=== PATIENT | female | born 1965 | race Caucasian/White ===

== ENCOUNTER → 2020-05-02 13:37 | Outpatient (CLI) | payer OTHER, SELFPAY ==
[2020-05-02] MEDS: COVID-19 VACC #1, MRNA(MOD) 100 MCG/0.5 ML VIAL IM (13:46)
== END ==
PROVIDERS: Visit Provider Internal Medicine
DX: Z23 Encounter for immunization (principal)
CPT/HCPCS: 0011A; 91301

== ENCOUNTER → 2020-05-30 13:37 | Outpatient (CLI) | payer OTHER, SELFPAY ==
[2020-05-30] MEDS: COVID-19 VACC #2, MRNA(MOD) 100 MCG/0.5 ML VIAL IM (13:49)
== END ==
PROVIDERS: Visit Provider Internal Medicine
DX: Z23 Encounter for immunization (principal)
CPT/HCPCS: 0012A; 91301

== ENCOUNTER 2023-09-09 15:15 | Outpatient (RCR) | payer OTHER, SELFPAY ==
--- NOTE | 2023-08-04 10:54 | ST.OPIE ---
Visit Care Team Role Provider Type Chidi Madera MD Attending Provider Non-Staff Family Provider Primary Care Provider Referring Provider Specialty: Medical Address: [address] [place] [address], [place], [address] Email: Speech-Language Pathology Initial Evaluation INSTRUCTIONAL DESIGN MANAGER Adult Cognitive Linguistic Eval Start: 08/04/23 10:31 Freq: Status: Active Protocol: Document 08/04/23 10:31 PAMELLA (Rec: 08/04/23 10:53 MA [id number]) Adult Cognitive Linguistic Evaluation Session Time Visit Start Time 09:45 Visit Stop Time 10:30 Total Visit Minutes 45 Visit Information Visit Number Initial Eval Plan of Care Dates 08/04/23-11/04/23 Insurance Information [place] Referral Referring Provider Dr. Madera Reason for Referral Unspecified mental disorder due to known physiological condition Setting Assessment Location Outpatient Care Visit Type Note Type Initial evaluation Next Note Type Next Note Type Treatment Note Patient Information Identification Type Name Patient History Pt is a 57 year old female seen this date for 1:1 cognitive communication evaluation. She is accompanied by her brother who assited with providing case history d/ t Pt with some memory deficits in regards to timeline of events. 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 She was transferred from [facility] in [place] to [facility] in [place] via helicopter and was in the ICU for 3 weeks. She was then discharged to inpatient rehab at [facility] from 04/29-05/31. She currently lives with her brother and had in home therapy 2x/week up until last week. She received PT/OT/ST both inpatient and in home. She reports residual cognitive dysfunction and word finding difficulties post hemorrhage, however has improved a great deal from when it first occurred. 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 [facility] She is currently receiving outpatient PT/ST/OT. Subjective Patient Report Pt reports she does not recall the days leading up to the hemorrhage, or even months prior to the accident. She states she had made improvements cognitively, however continues to have residual memory recall difficulties, trouble subtracting numbers, word finding issues and impulsivity , specifically rushing into things and then making mistakes. Pt reports she worked with a lot of numbers at work and has no plan to return at this time. Mental Status Alert,Responsive,Cooperative Assessment Oral Motor Examination Completed No Informal Assessment Pragmatic Language Normal Yes Cognition Normal Yes Cognitive Impairment(s) Short-term memory,Long-term memory Formal Assessment Standardized Test/Screener Type Cognitive Linguistic Quick Test (CLQT) Administration Initiated,Incomplete Results ST administered the Cognitive Linguistic Quick Test (CLQT), however not completed d/t time . ST plan to complete exam during next session. Pt completed personal facts with a score of 8/8 and symbool cancellation with a score of 12/12. Findings/Results Language Function Mildly impaired Cognitive Function Mild-moderately impaired Findings Pt presents with mild-mod cognitive-linguistic deficit. Pt may benefit from skilled ST services in order to learn and utilize memory enhancing and problem solving compensatory strategies, environmental modifications to assist with memory and executive functions as well as word finding. Cognitive Communication Deficits Self-awareness of Cognitive- Predictive awareness (able to Communication Deficits predict problem; impact of impairments) Prognosis Prognosis Good Based on Cognitive status,Family support,Duration of symptoms/ severity Plan of Care Speech-Language Treatment Yes Frequency 1x/week up to 15 visits Duration 3 months Patient/Caregiver Education Described results of evaluation,Patient expressed understanding of evaluation, Patient expressed agreement with goals and treatment plans ,Family/caregivers expressed understanding of evaluation, Family/caregivers expressed agreement with goals and treatment plan,Patient requires further education/ training,Family/caregivers require further education/ training Short Term Goals STG 1: Patient will name/ describe objects/pictures with 80% accuracy and mod cues for forced choice, phonemic/ semantic cueing, gestural/ contextual cues. STG 2: Patient will demonstrate increase short term recall for functional/ daily life information with 90 % of opportunities given environmental modifications implemented and by using visual aids in order to increase independence. Electrical Cad Designer Goals LTG 2: Patient will develop functional, cognitive- linguistic-based skills and utilize compensatory strategies to communicate wants and needs effectively to different conversational partners, maintain safety and participate socially in functional living environment Discharge Recommendations Home
--- NOTE | 2023-08-04 10:54 | ST.OPPOC ---
Physical, Occupational & Speech Therapy At [facility] Visit Care Team Role Provider Type Chidi Madera MD Attending Provider Non-Staff Family Provider Primary Care Provider Referring Provider Address: [address] [place] [address], [id number] Speech Pathology Plan of Care Plan of Care Dates 08/04/23-11/04/[address] Madera Patient History Pt is a 57 year old female seen this date for 1: 1 cognitive communication evaluation. She is accompanied by her brother who assited with providing case history d/t Pt with some memory deficits in regards to timeline of events. 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 She was transferred from [facility] in [place] to [facility] in [place] via helicopter and was in the ICU for 3 weeks. She was then discharged to inpatient rehab at [facility] from 04/29-05/31. She currently lives with her brother and had in home therapy 2x/week up until last week. She received PT/OT/ ST both inpatient and in home. She reports residual cognitive dysfunction and word finding difficulties post hemorrhage, however has improved a great deal from when it first occurred. Self-awareness of Cognitive- Predictive awareness (abl Communication Deficits Short Term Goals STG 1: Patient will name/describe objects/ pictures with 80% accuracy and mod cues for forced choice, phonemic/semantic cueing, gestural/contextual cues. STG 2: Patient will demonstrate increase short term recall for functional/daily life information with 90% of opportunities given environmental modifications implemented and by using visual aids in order to increase independence. Face Burler Goals LTG 2: Patient will develop functional, wmrpmjqum-[id number]-[id number] skills and utilize compensatory strategies to communicate wants and needs effectively to different conversational partners, maintain safety and participate socially in functional living environment Comment: Electronically Signed by: BILL Mathtews 08/04/23 [id number] If you are in agreement with this Plan of Care, please return a signed and dated copy. I have reviewed this Plan of Care and certify that the skilled therapy services above are required to meet the patient?s needs. Physician Signature Date Printed Name and Credentials Clinical Instructor Signature Printed Name and Credentials
--- NOTE | 2023-08-08 17:31 | ST.OPTN ---
Visit Care Team Role Provider Type Chidi Madera MD Attending Provider Non-Staff Family Provider Primary Care Provider Referring Provider Address: [address] [place] [address], [place], [address] DISK RECORDIST Treatment Note DISK RECORDIST Treatment Note Start: 08/08/23 17:16 Freq: Status: Active Protocol: Document 08/08/23 17:19 MA (Rec: 08/08/23 17:30 MA [id number]) Speech Pathology Treatment Note Session Time Visit Start Time 16:00 Visit Stop Time 16:35 Total Visit Minutes 35 Visit Information Visit Number 2 Plan of Care Dates 08/04/23-11/04/23 Setting Treatment Setting Outpatient Care Next Note Type Next Note Type Treatment Note General Information Patient History Pt is a 57 year old female seen this date for 1:1 cognitive communication evaluation. She is accompanied by her brother who assited with providing case history d/ t Pt with some memory deficits in regards to timeline of events. 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 She was transferred from [facility] in [place] to [facility] in [place] via helicopter and was in the ICU for 3 weeks. She was then discharged to inpatient rehab at [facility] from 04/29-05/31. She currently lives with her brother and had in home therapy 2x/week up until last week. She received PT/OT/ST both inpatient and in home. She reports residual cognitive dysfunction and word finding difficulties post hemorrhage, however has improved a great deal from when it first occurred. Subjective Observations/Patient Presentation Pt arrived on time to therapy independently. She reports she took the public transit without any issues. Objective Short Term Goals STG 1: Patient will name/ describe objects/pictures with 80% accuracy and mod cues for forced choice, phonemic/ semantic cueing, gestural/ contextual cues. STG 2: Patient will demonstrate increase short term recall for functional/ daily life information with 90 % of opportunities given environmental modifications implemented and by using visual aids in order to increase independence. Certified Nurse Aide Goals LTG 2: Patient will develop functional, cognitive- linguistic-based skills and utilize compensatory strategies to communicate wants and needs effectively to different conversational partners, maintain safety and participate socially in functional living environment Treatment Activities Completion of CLQT Assessment Patient Response to Treatment Excellent Rehab Potential Excellent Impairments Identified Cognitive communication Progress Towards Goals Excellent Progress Assessment of Improvement ST completed administering CLQT with Pt scoring a total score of 4 indicating a composite severity rating of WNL. Pt scored the WNL on each section: attention, memory, executive functions, language, visuospatial skills and clock drawing. Pt exhibited most deficits in language and memory recall. Pt reports in her daily life she continues to struggle with subtraction and memory recall. She also states if she initiate a task too quickly she won't execute the task as efficiently if she took more time to do. ST educated Pt on test results and POC. Pt verbalized understanding.
--- NOTE | 2023-08-15 16:38 | ST.OPTN ---
Visit Care Team Role Provider Type Chidi Madera MD Attending Provider Non-Staff Family Provider Primary Care Provider Referring Provider Address: [address] [place] [address], [place], [address] JEWEL HOLE CORNERER Treatment Note JEWEL HOLE CORNERER Treatment Note Start: 08/08/23 17:16 Freq: Status: Active Protocol: Document 08/15/23 16:26 MA (Rec: 08/15/23 16:38 MA [id number]) Speech Pathology Treatment Note Session Time Visit Start Time 16:00 Visit Stop Time 16:35 Total Visit Minutes 35 Visit Information Visit Number 3 Plan of Care Dates 08/04/23-11/04/23 Setting Treatment Setting Outpatient Care Next Note Type Next Note Type Treatment Note General Information Patient History Pt is a 57 year old female seen this date for 1:1 cognitive communication evaluation. She is accompanied by her brother who assited with providing case history d/ t Pt with some memory deficits in regards to timeline of events. 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 She was transferred from [facility] in [place] to [facility] in [place] via helicopter and was in the ICU for 3 weeks. She was then discharged to inpatient rehab at [facility] from 04/29-05/31. She currently lives with her brother and had in home therapy 2x/week up until last week. She received PT/OT/ST both inpatient and in home. She reports residual cognitive dysfunction and word finding difficulties post hemorrhage, however has improved a great deal from when it first occurred. Subjective Observations/Patient Presentation Pt arrived on time to therapy independently. She reports she took the public transit without any issues. She also reports she has moved back into her home and living independently. Objective Short Term Goals STG 1: Patient will name/ describe objects/pictures with 80% accuracy and mod cues for forced choice, phonemic/ semantic cueing, gestural/ contextual cues. STG 2: Patient will demonstrate increase short term recall for functional/ daily life information with 90 % of opportunities given environmental modifications implemented and by using visual aids in order to increase independence. Mcfp Goals LTG 2: Patient will develop functional, cognitive- linguistic-based skills and utilize compensatory strategies to communicate wants and needs effectively to different conversational partners, maintain safety and participate socially in functional living environment Treatment Activities Education on internal and external memory strategies, math exercise Assessment Patient Response to Treatment Excellent Rehab Potential Excellent Impairments Identified Cognitive communication Progress Towards Goals Excellent Progress Assessment of Improvement ST educated Pt on internal and external memory strategies. She reports she is now living home independently and utilizes a calendar and timer. She states she especially utilizes a timer when cooking. She reports she would like to improve her ability to complete tasks without so much hesitation. ST provided Pt with a notebook and recommended she write down any time she has experienced a cognitive issue. ST assessed Pt ability to subtract d/t her reporting difficulties. She completed subtraction with 100 % accuracy and states she can do it on paper however has mosot difficulties doing it in her head. She would like to focus therapy on figuring out ways to complete tasks quicker and without so much delay.
--- NOTE | 2023-08-22 16:06 | ST.OPTN ---
Visit Care Team Role Provider Type Chidi Madera MD Attending Provider Non-Staff Family Provider Primary Care Provider Referring Provider Address: [address] [place] [address], [place], [address] SHOP STEWARD Treatment Note SHOP STEWARD Treatment Note Start: 08/08/23 17:16 Freq: Status: Active Protocol: Document 08/22/23 15:57 PAMELLA (Rec: 08/22/23 16:06 PAMELLA [id number]) Speech Pathology Treatment Note Session Time Visit Start Time 14:35 Visit Stop Time 15:15 Total Visit Minutes 40 Visit Information Visit Number 4 Plan of Care Dates 08/04/23-11/04/23 Setting Treatment Setting Outpatient Care Next Note Type Next Note Type Treatment Note General Information Patient History Pt is a 57 year old female seen this date for 1:1 cognitive communication evaluation. She is accompanied by her brother who assited with providing case history d/ t Pt with some memory deficits in regards to timeline of events. 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 She was transferred from [facility] in [place] to [facility] in [place] via helicopter and was in the ICU for 3 weeks. She was then discharged to inpatient rehab at [facility] from 04/29-05/31. She currently lives with her brother and had in home therapy 2x/week up until last week. She received PT/OT/ST both inpatient and in home. She reports residual cognitive dysfunction and word finding difficulties post hemorrhage, however has improved a great deal from when it first occurred. Subjective Observations/Patient Presentation Pt arrived on time to therapy independently. She reports she took the public transit without any issues. Objective Short Term Goals STG 1: Patient will name/ describe objects/pictures with 80% accuracy and mod cues for forced choice, phonemic/ semantic cueing, gestural/ contextual cues. STG 2: Patient will demonstrate increase short term recall for functional/ daily life information with 90 % of opportunities given environmental modifications implemented and by using visual aids in order to increase independence. Data Processing Auditor Goals LTG 2: Patient will develop functional, cognitive- linguistic-based skills and utilize compensatory strategies to communicate wants and needs effectively to different conversational partners, maintain safety and participate socially in functional living environment Treatment Activities Visual scanning, external memory strategies Assessment Patient Response to Treatment Excellent Rehab Potential Excellent Impairments Identified Cognitive communication Progress Towards Goals Excellent Progress Assessment of Improvement Pt reports she wrote down a list of moments she experienced cognitive deficits /delays, however forgot it at home but coulg recall the list . They included: going to turn on the radio and pushing the off button, putting the spatula away in the wrong drawer, and forgetting name of the dietary server that rescheduled her appointment. ST recommended Pt put labels on kitchen cabinets/radio at home to assist with recall/ problem solving. Pt verbalized understanding. Pt also reported difficulties with right visual field cut. ST assessed visuospatial skills utilizing a scanning task, which Pt completed with 100% accuracy. ST provided an educational handout on visual scanning strategies to assist Pt with reading and other everyday tasks. She states she has no desire to start driving again until her vision improves. She states she has been utilizing timers at home for tasks to not forget, such as cooking. ST recommended Pt write down tasks that she has been struggling to initiate or where the steps becoming confusing in order to potentially make a checklist together. Pt verbalized understanding.
--- NOTE | 2023-08-30 17:15 | ST.OPTN ---
Visit Care Team Role Provider Type Chidi Madera MD Attending Provider Non-Staff Family Provider Primary Care Provider Referring Provider Address: [address] [place] [address], [place], [address] BASKET SORTER Treatment Note BASKET SORTER Treatment Note Start: 08/08/23 17:16 Freq: Status: Active Protocol: Document 08/30/23 17:09 PAMELLA (Rec: 08/30/23 17:14 PAMELLA [id number]) Speech Pathology Treatment Note Session Time Visit Start Time 16:45 Visit Stop Time 17:15 Total Visit Minutes 30 Visit Information Visit Number 5 Plan of Care Dates 08/04/23-11/04/23 Setting Treatment Setting Outpatient Care Next Note Type Next Note Type Treatment Note General Information Patient History Pt is a 57 year old female seen this date for 1:1 cognitive communication evaluation. She is accompanied by her brother who assited with providing case history d/ t Pt with some memory deficits in regards to timeline of events. 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 She was transferred from [facility] in [place] to [facility] in [place] via helicopter and was in the ICU for 3 weeks. She was then discharged to inpatient rehab at [facility] from 04/29-05/31. She currently lives with her brother and had in home therapy 2x/week up until last week. She received PT/OT/ST both inpatient and in home. She reports residual cognitive dysfunction and word finding difficulties post hemorrhage, however has improved a great deal from when it first occurred. Subjective Observations/Patient Presentation Pt arrived on time to therapy independently. She reports she took the public transit without any issues. Objective Short Term Goals STG 1: Patient will name/ describe objects/pictures with 80% accuracy and mod cues for forced choice, phonemic/ semantic cueing, gestural/ contextual cues. STG 2: Patient will demonstrate increase short term recall for functional/ daily life information with 90 % of opportunities given environmental modifications implemented and by using visual aids in order to increase independence. Software Support Specialist Goals LTG 2: Patient will develop functional, cognitive- linguistic-based skills and utilize compensatory strategies to communicate wants and needs effectively to different conversational partners, maintain safety and participate socially in functional living environment Treatment Activities Internal memory strategies Assessment Patient Response to Treatment Excellent Rehab Potential Excellent Impairments Identified Cognitive communication Progress Towards Goals Excellent Progress Assessment of Improvement Pt reports she wrote down a list of moments she experienced cognitive deficits /delays, however forgot it at home but could recall 1 thing on the list. She reported difficulties working her timer when hard boiling eggs and set it to seconds vs minutes, however still cooked the eggs for an appropriate amount of time. She states she has been working with PT on her visual neglect. She returned homework which involved reviewing and practicing utilizing internal memory strategies. ST assessed use of internal memory strategy word association in order to promote carryover. She recalled 5 unrelated words with about a 3 minute delay with use of word association strategy with about 93% accuracy requiring mild verbal cues. ST educated Pt on POC. Pt verbalized understanding. Reviewed with Patient Goals,Progress Being Made
--- NOTE | 2023-09-09 15:45 | ST.OPDS ---
Visit Care Team Role Provider Type Chidi Madera MD Attending Provider Non-Staff Family Provider Primary Care Provider Referring Provider Address: [address] [place] [address], [place], [address] PLATE HANGER Treatment Note PLATE HANGER Treatment Note Start: 08/08/23 17:16 Freq: Status: Active Protocol: Document 09/09/23 15:31 MA (Rec: 09/09/23 15:35 MA [id number]) Speech Pathology Treatment Note Session Time Visit Start Time 15:15 Visit Stop Time 15:45 Total Visit Minutes 30 Visit Information Visit Number 6 Plan of Care Dates 08/04/23-11/04/23 Setting Treatment Setting Outpatient Care Next Note Type Next Note Type Treatment Note General Information Patient History Pt is a 57 year old female seen this date for 1:1 cognitive communication evaluation. She is accompanied by her brother who assited with providing case history d/ t Pt with some memory deficits in regards to timeline of events. 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 She was transferred from [facility] in [place] to [facility] in [place] via helicopter and was in the ICU for 3 weeks. She was then discharged to inpatient rehab at [facility] from 04/29-05/31. She currently lives with her brother and had in home therapy 2x/week up until last week. She received PT/OT/ST both inpatient and in home. She reports residual cognitive dysfunction and word finding difficulties post hemorrhage, however has improved a great deal from when it first occurred. Subjective Observations/Patient Presentation Pt arrived on time to therapy independently. She reports she took the public transit without any issues. She just had PT prior to session. Objective Short Term Goals STG 1: Patient will name/ describe objects/pictures with 80% accuracy and mod cues for forced choice, phonemic/ semantic cueing, gestural/ contextual cues.- MET STG 2: Patient will demonstrate increase short term recall for functional/ daily life information with 90 % of opportunities given environmental modifications implemented and by using visual aids in order to increase independence.- MET Breaker Mechanic Goals LTG 1: Patient will develop functional, cognitive- linguistic-based skills and utilize compensatory strategies to communicate wants and needs effectively to different conversational partners, maintain safety and participate socially in functional living environment Treatment Activities Discharge recommendations- MET Assessment Patient Response to Treatment Excellent Rehab Potential Excellent Impairments Identified Cognitive communication Progress Towards Goals Excellent Progress,Appropriate for Discharge Assessment of Improvement Pt reports 1x occurrence of cognitive deficit since last visit, specifically putting the milk away in the wrong place. However, Pt reports unable to determine if d/t CVA or if just having a normal hiccup. She reports she has been utilizing internal and external memory strategies without diifficulties. ST facilitated conversation in regards to Pt discharging from therapy d/t reaching goals and utilizing strategies independently. Pt in agreeance . Pt continues to be seen at this clinic for PT with ST recommending she communicate with her if any changes occur cognitively. Pt verbalized understanding. ST also recommends Pt continue to utilize memory compensatory strategies. Reviewed with Patient Goals,Progress Being Made Plan Frequency of Treatment No Further Therapy Provided Patient/Caregiver Instruction Home Exercise Program,Plan of Care,Questions/Concerns Therapy Recommendations Discharge from Speech Therapy
== END 2023-09-13 10:56 | disposition home or self-care (01) ==
LOC: SP 15:15
PROVIDERS: Family Provider Family Medicine; PCP Family Medicine; Referring Provider Family Medicine; Visit Provider Family Medicine
DX: F09 Unspecified mental disorder due to known physiological condition (principal)
CPT/HCPCS: 92507; 92523

== ENCOUNTER 2023-09-12 13:45 | Outpatient (RCR) | payer OTHER, SELFPAY ==
--- NOTE | 2023-08-01 09:49 | OT.OP.EVAL ---
Visit Care Team Role Provider Type Chidi Madera MD Attending Provider Non-Staff Family Provider Primary Care Provider Referring Provider Specialty: Medical Address: [address] [place] [address], [place], [address] Email: Occupational Therapy Initial Evaluation OT Outpatient Adult Evaluation Start: 08/01/23 08:58 Freq: Status: Active Protocol: Document 08/01/23 08:58 AMS (Rec: 08/01/23 09:42 AMS [id number]) General Information - Adult Visit Number 02/28 Plan of Care Dates 08/01/23 - 09/12/23 Insurance Information [facility]; x 15 auth OT; max 60 PT/OT/SP PCY Visit Start Time 08:15 Visit Stop Time 08:50 Treatment Setting Outpatient Care Note Type Initial Evaluation Referring Physician Chidi Madera MD Identification Confirmed Yes Identification Confirmed By Self Previous Therapy/Therapies Yes History of Therapy Inpatient; Home Health Goals Data Reduction Technician Goals 1. Kimberly will be modified independent with upper extremity home exercise program referencing written/ visual instructions as needed. 2. Kimberly will demonstrate improvements w/ L UE strength: 2a. 4+/5 MMT L sh abduction. Assessment/Plan Treatment Assessment Kimberly is 57 y.o.; right hand dominant; referred to outpatient OT secondary to stroke (which occurred on April 01). She was in the ICU at [facility] x 3 weeks; then transferred to [facility] in [place] for 5 weeks; then she was d/c to her brother's home ([place]). She received inpatient therapies, as well as services. She was instructed in TB bicep curls, tricep extension, and seated rows, hamstring curls, side kicks. She was orientated to day, date, and year. PMH significant for back pain, blood pressure concerns, headaches, hearing problems, memory loss, neck pain, vision problems, chronic sciatica. Whole Body Pain Assessment Grid completed; indication of 5 out of 10 on on pain scale relative to lateral bilateral scapular/inferior shoulders; indication of 7 out of 10 on pain scale relative left lower lumbar region. QuickDASH UE Outcome Measure Score = 40.91; QuickDASH UE Work Module Score = 50.00. PLOF = independent w/ BADLS and IADLS. 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 Current level of function = Kimberly is residing w/ her brother eBnji , Benji's , and mother-in- law. She is not working. She is not driving; she just recently started using paratransit (started last Tuesday). She obtained new glasses since stroke (last Tuesday from wind turbine technician). She is independent with dressing, g/h, self-feeding, bathing and toileting. She has done some meal prep (prepared x 3 meals), some weeding in the garden, laundry and light house keeping tasks. She has a work station set-up in the home; she has access to a calendar, completes a daily diary, does word searches/ sudoku puzzles. Written signage is within the home to help w/ orientation/short term memory. She has been able to correct self when mistakes are made. Screened visual scanning abilities; correctly identified 35/36 single items w/ visual scanning activity single targets x 2; correctly identified 40/40 2 digit items w/ visual scanning activity double digit targets x 2. (+) orientation to midline w/ UEs in frontal plane; above head. Able to oppose digits to each finger pad bilaterally w/ EO and EC. B UE AROM WFL. Overall, good UE strength 4+/5 MMT sh flex, ext, add, hor sh abd, hor sh add, IR, ER, elbow flex, elbow ext; however, 3+/5 MMT L sh abd. Outpatient OT rec to address L UE weakness. Length of treatment (weeks) 6 Plan of Care Start Date 08/01/23 Plan of Care End Date 09/12/23 Treatment Frequency Once a Week Therapeutic Contents Active Range of Motion, Functional Activities,Home Exercise Program,Joint Protection,Education, Neurodevelopment Treatment, Neuromuscular Re-Education, Self-Care,Stretching/ Flexibility Activities, Therapeutic Activities, Therapeutic Exercises, Modalities Additional Areas of Treatment Heat/Ice/Contrast/Ultrasound Other Suggested Referrals GARBAGE PICK UP WORKER and PT
--- NOTE | 2023-08-08 15:45 | OT.OP.TRT ---
Visit Care Team Role Provider Type Chidi Madera MD Attending Provider Non-Staff Family Provider Primary Care Provider Referring Provider Specialty: Medical Address: [address] [place] [address], [place], [address] Email: Occupational Therapy Treatment Note OT Outpatient Treatment Note - Adult Start: 08/01/23 08:58 Freq: Status: Active Protocol: Document 08/08/23 15:36 AMS (Rec: 08/08/23 15:45 AMS [id number]) OT Outpatient Adult Treatment Note Session Time Visit Start Time 14:30 Visit Stop Time 15:15 Visit Information Visit Number 03/31 Plan of Care Dates 08/01/23 - 09/12/23 Insurance Information [facility]; x 15 auth OT; max 60 PT/OT/SP PCY Setting Treatment Setting Outpatient Care Visit Type Note Type Treatment Note General Information General Information Kimberly is 57 y.o.; right hand dominant; referred to outpatient OT secondary to stroke (which occurred on April 01). She was in the ICU at [facility] x 3 weeks; then transferred to [facility] in [place] for 5 weeks; then she was d/c to her brother's home ([place]). She received inpatient therapies, as well as HH services. She was instructed in TB bicep curls, tricep extension, and seated rows, hamstring curls, side kicks. She was orientated to day, date, and year. PMH significant for back pain, blood pressure concerns, headaches, hearing problems, memory loss, neck pain, vision problems, chronic sciatica. - Subjective Identification Type Name Identification Reconciled With Medical Record Observations Kimberly reports that she is anxious to return to her condo ; she has a friend who is assisting her with replacing the 'cracked' skylight. She is still staying with her brother at this time. She has an appointment w/ Tien at 4: 00 p.m.; she is using paratransit to commute to and from appointments. She reported walking a little less than 1/4 miles in approx 27 min. - Objective Objective Measurements Please refer to below for progress towards meeting established OT goals: Detention Goals 1. Kimberly will be modified independent with upper extremity home exercise program referencing written/ visual instructions as needed. 2. Kimberly will demonstrate improvements w/ L UE strength: 2a. 4+/5 MMT L sh abduction. - Exercises 2 Descriptor UE strengthening. TB #3. Bilateral Seated row. 3 x 10. TB #3. Bilateral Sh ext. Standing. 3 x 10. TB #3. Unilateral elbow ext. Seated. 3 x 10. TB #3. Unilateral sh flex. Seated. 3 x 10. TB #3. Unilateral sh abd. Seated. 3 x 10. 1 Descriptor UEB. x 10 minutes seated. Height #3. x 7 min forwards direction. x 3 min backwards direction. - Assessment Assessment of Improvement Kimberly did quite well w/ TB UE strengthening exercises; she had been previously instructed in B bicep curls, tricep extension, and seated rows w/ theraband by HH. Rec trialing longer theraband for identification of preference for bilateral vs unilateral execution of UE strengthening. Outpatient OT rec to address L UE weakness. - Plan Therapy Recommendations Continue with Current Program, Advance per Rehabilitation Protocol
--- NOTE | 2023-08-15 15:35 | OT.OP.TRT ---
Visit Care Team Role Provider Type Chidi Madera MD Attending Provider Non-Staff Family Provider Primary Care Provider Referring Provider Specialty: Medical Address: [address] [place] [address], [place], [address] Email: Occupational Therapy Treatment Note OT Outpatient Treatment Note - Adult Start: 08/01/23 08:58 Freq: Status: Active Protocol: Document 08/15/23 15:27 AMS (Rec: 08/15/23 15:35 AMS [id number]) OT Outpatient Adult Treatment Note Session Time Visit Start Time 14:30 Visit Stop Time 15:10 Visit Information Visit Number 04/28 Plan of Care Dates 08/01/23 - 09/12/23 Insurance Information [facility]; x 15 auth OT; max 60 PT/OT/SP PCY Setting Treatment Setting Outpatient Care Visit Type Note Type Treatment Note General Information General Information Kimberly is 57 y.o.; right hand dominant; referred to outpatient OT secondary to stroke (which occurred on April 01). She was in the ICU at [facility] x 3 weeks; then transferred to [facility] in [place] for 5 weeks; then she was d/c to her brother's home ([place]). She received inpatient therapies, as well as HH services. She was instructed in TB bicep curls, tricep extension, and seated rows, hamstring curls, side kicks. She was orientated to day, date, and year. PMH significant for back pain, blood pressure concerns, headaches, hearing problems, memory loss, neck pain, vision problems, chronic sciatica. - Subjective Identification Type Name Identification Reconciled With Medical Record Observations Kimberly will be evaluated by Lonnie this 08/17/23 based on availability for PT. She has returned to her condo; she is using timers throughout the home to assist w/ time management/meal preparation. She reports that she has some difficulty locating items within her kitchen. She is scheduling her own paratransit. She is being seen by outpatient MANUGRAPHER. - Objective Objective Measurements Please refer to below for progress towards meeting established OT goals: Perinatal Social Worker Goals 1. Kimberly will be modified independent with upper extremity home exercise program referencing written/ visual instructions as needed. 2. Kimberly will demonstrate improvements w/ L UE strength: 2a. 4+/5 MMT L sh abduction. - Exercises 2 Descriptor UE strengthening. TB #3. Bilateral sh flex. Seated. 3 x 10. TB #3. Unilateral sh abd. Seated. 3 x 10. TB #3. Bilateral lat pulldown. Seated. 3 x 10. TB #3. Bilateral sh hor abd. Seated. 3 x 10. TB #3. Unilateral alt seated punches. Seated. 3 x 10. N/A 08/15/23 TB #3. Bilateral Seated row. 3 x 10. TB #3. Bilateral Sh ext. Standing. 3 x 10. TB #3. Unilateral elbow ext. Seated. 3 x 10. 1 Descriptor UEB. x 10 minutes. Seated. Forwards direction. Height #3. - Assessment Assessment of Improvement Kimberly did quite well w/ TB UE strengthening exercises; introduced lat pulldown and seated alt punches. Rec increasing to 3 sets of 12 reps based on feedback; consider increasing to 3 sets of 15 reps. Outpatient OT rec to address L UE weakness. Home Exercise Program 08/15/23 = Provided w/ TB #3 for home use for UE strengthening ; Kimberly is looking to increase reps; rec 3 sets x 12 . Rec unilateral/bilateral sh flex, sh abd, lat pulldown, hor sh abd; also instructed in seated punches. She is utilizing home blue TB for bicep curls, tricep ext, and rows. - Plan Therapy Recommendations Continue with Current Program, Advance per Rehabilitation Protocol
--- NOTE | 2023-08-24 15:36 | OT.OP.TRT ---
Visit Care Team Role Provider Type Chidi Madera MD Attending Provider Non-Staff Family Provider Primary Care Provider Referring Provider Specialty: Medical Address: [address] [place] [address], [place], [address] Email: Occupational Therapy Treatment Note OT Outpatient Treatment Note - Adult Start: 08/01/23 08:58 Freq: Status: Active Protocol: Document 08/24/23 15:16 AMS (Rec: 08/24/23 15:36 AMS [id number]) OT Outpatient Adult Treatment Note Session Time Visit Start Time 14:30 Visit Stop Time 15:13 Visit Information Visit Number 05/29 Plan of Care Dates 08/01/23 - 09/12/23 Insurance Information [facility]; x 15 auth OT; max 60 PT/OT/SP PCY Setting Treatment Setting Outpatient Care Visit Type Note Type Treatment Note General Information General Information Kimberly is 57 y.o.; right hand dominant; referred to outpatient OT secondary to stroke (which occurred on April 01). She was in the ICU at [facility] x 3 weeks; then transferred to [facility] in [place] for 5 weeks; then she was d/c to her brother's home ([place]). She received inpatient therapies, as well as HH services. She was instructed in TB bicep curls, tricep extension, and seated rows, hamstring curls, side kicks. She was orientated to day, date, and year. PMH significant for back pain, blood pressure concerns, headaches, hearing problems, memory loss, neck pain, vision problems, chronic sciatica. - Subjective Identification Type Name Identification Reconciled With Medical Record Observations (+) report of execution of UE strengthening exercises in the home. Completing 3 sets of 12 , 10, 8. - Objective Objective Measurements Please refer to below for progress towards meeting established OT goals: Meat Soaker Goals 1. Kimberly will be modified independent with upper extremity home exercise program referencing written/ visual instructions as needed. 2. Kimberly will demonstrate improvements w/ L UE strength: 2a. 4+/5 MMT L sh abduction. - Exercises 2 Descriptor UE strengthening. TB #3. Bilateral elbow ext. Seated. 3 sets; 12, 10, 8. TB #3. Bilateral elbow flex. Seated. 3 sets; 12, 10, 8. TB #3. Bilateral sh flex. Seated. 3 sets; 12, 10, 8. TB #3. Bilateral sh abd. Seated. 3 sets; 12, 10, 8. TB #3. Bilateral lat pulldown. Seated. 3 sets; 12, 10, 8. TB #3. Bilateral sh hor abd. Seated. 3 sets; 12, 10, 8. TB #3. Bilateral bent over row . Seated. 3 sets; 12, 10, 8. TB #3. Unilateral alt seated punches. Seated. 3 sets; 12, 10, 8. N/A 08/15/23 TB #3. Bilateral Seated row. 3 x 10. 1 Descriptor UEB. x 10 minutes. Seated. Forwards direction. Height #3. - Assessment Assessment of Improvement Kimberly did quite well w/ TB UE strengthening exercises; introduced bent over row bilateral seated w/ TB #3. Rec increasing to 3 sets of 12 reps based on feedback; consider increasing to 3 sets of 15 reps. Outpatient OT rec to address L UE weakness. Home Exercise Program 08/24/23 = Provided w/ visual and written instructions for TB sh flex, TB sh abd, TB elbow flex, TB elbow ext, TB upright row, and TB sh hor abd . tennis desk team member staff to scan documentation into EMR when able to do so. 08/15/23 = Provided w/ TB #3 for home use for UE strengthening ; Kimberly is looking to increase reps; rec 3 sets x 12 . Rec unilateral/bilateral sh flex, sh abd, lat pulldown, hor sh abd; also instructed in seated punches. She is utilizing home blue TB for bicep curls, tricep ext, and rows. - Plan Therapy Recommendations Advance per Rehabilitation Protocol
--- NOTE | 2023-08-29 15:29 | OT.OP.TRT ---
Visit Care Team Role Provider Type Chidi Madera MD Attending Provider Non-Staff Family Provider Primary Care Provider Referring Provider Specialty: Medical Address: [address] [place] [address], [place], [address] Email: Occupational Therapy Treatment Note OT Outpatient Treatment Note - Adult Start: 08/01/23 08:58 Freq: Status: Active Protocol: Document 08/29/23 15:22 AMS (Rec: 08/29/23 15:28 AMS [id number]) OT Outpatient Adult Treatment Note Session Time Visit Start Time 14:30 Visit Stop Time 15:13 Visit Information Visit Number 06/28 Plan of Care Dates 08/01/23 - 09/12/23 Insurance Information [facility]; x 15 auth OT; max 60 PT/OT/SP PCY Setting Treatment Setting Outpatient Care Visit Type Note Type Treatment Note General Information General Information Kimberly is 57 y.o.; right hand dominant; referred to outpatient OT secondary to stroke (which occurred on April 01). She was in the ICU at [facility] x 3 weeks; then transferred to [facility] in [place] for 5 weeks; then she was d/c to her brother's home ([place]). She received inpatient therapies, as well as HH services. She was instructed in TB bicep curls, tricep extension, and seated rows, hamstring curls, side kicks. She was orientated to day, date, and year. PMH significant for back pain, blood pressure concerns, headaches, hearing problems, memory loss, neck pain, vision problems, chronic sciatica. - Subjective Identification Type Name Identification Reconciled With Medical Record Observations Kimberly reports alternating UE with TB strengthening exercises. She reports assisting with putting up metal sheeting on a building [place]. Ha - Objective Objective Measurements Please refer to below for progress towards meeting established OT goals: Dowel Machine Operator Goals 1. Kimberly will be modified independent with upper extremity home exercise program referencing written/ visual instructions as needed. 2. Kimberly will demonstrate improvements w/ L UE strength: 2a. 4+/5 MMT L sh abduction. - Exercises 3 Descriptor UE range of motion. Bilateral sh flex. Hold 20 sec . x 1 rep Bilateral sh flex w/ lat trunk flex/trunk ext. Hold 20 sec. x 1 rep Bilateral sh ext. Hold 20 sec. x 1 rep Bilateral wrist ext w/ elbow ext and forearm supination. Hold 20 sec. Bilateral wrist flex w/ elbow ext and forearm pronation. Hold 20 sec. 2 Descriptor UE strengthening. TB #3. Bilateral elbow ext. Seated. 3 sets; 12 reps TB #3. Bilateral elbow flex. Seated. 3 sets; 12 reps TB #3. Bilateral sh flex. Seated. 3 sets; 12 reps TB #3. Bilateral sh abd. Seated. 3 sets; 12 reps TB #3. Bilateral lat pulldown. Seated. 3 sets; 12 reps TB #3. Bilateral sh hor abd. Seated. 3 sets; 12 reps TB #3. Unilateral alt seated punches. Seated. 3 sets; 12 reps N/A 08/15/23 TB #3. Bilateral bent over row . Seated. 3 sets; 12, 10, 8. TB #3. Bilateral Seated row. 3 x 10. 1 Descriptor UEB. x 10 minutes. Seated. Forwards direction. Height #3. - Assessment Assessment of Improvement Introduced bilateral UE passive range of motion based on feedback, including c/o bilateral forearm soreness. Kimberly cont to do quite well w/ TB UE strengthening exercises; increased TB UE strengthening exercises to 3 sets of 12 reps. Rec considering increasing to 3 sets of 15 reps. Outpatient OT rec to address L UE weakness. Home Exercise Program 08/24/23 = Provided w/ visual and written instructions for TB sh flex, TB sh abd, TB elbow flex, TB elbow ext, TB upright row, and TB sh hor abd . front desk staff to scan documentation into EMR when able to do so. 08/15/23 = Provided w/ TB #3 for home use for UE strengthening ; Kimberly is looking to increase reps; rec 3 sets x 12 . Rec unilateral/bilateral sh flex, sh abd, lat pulldown, hor sh abd; also instructed in seated punches. She is utilizing home blue TB for bicep curls, tricep ext, and rows. - Plan Therapy Recommendations Advance per Rehabilitation Protocol
--- NOTE | 2023-09-05 15:44 | OT.OP.TRT ---
Visit Care Team Role Provider Type Chidi Madera MD Attending Provider Non-Staff Family Provider Primary Care Provider Referring Provider Specialty: Medical Address: [address] [place] [address], [place], [address] Email: Occupational Therapy Treatment Note OT Outpatient Treatment Note - Adult Start: 08/01/23 08:58 Freq: Status: Active Protocol: Document 09/05/23 15:36 AMS (Rec: 09/05/23 15:43 AMS [id number]) OT Outpatient Adult Treatment Note Session Time Visit Start Time 13:45 Visit Stop Time 14:25 Visit Information Visit Number 07/29 Plan of Care Dates 08/01/23 - 09/12/23 Insurance Information [facility]; x 15 auth OT; max 60 PT/OT/SP PCY Setting Treatment Setting Outpatient Care Visit Type Note Type Treatment Note General Information General Information Kimberly is 57 y.o.; right hand dominant; referred to outpatient OT secondary to stroke (which occurred on April 01). She was in the ICU at [facility] x 3 weeks; then transferred to [facility] in [place] for 5 weeks; then she was d/c to her brother's home ([facility]). She received inpatient therapies, as well as services. She was instructed in TB bicep curls, tricep extension, and seated rows, hamstring curls, side kicks. She was orientated to day, date, and year. PMH significant for back pain, blood pressure concerns, headaches, hearing problems, memory loss, neck pain, vision problems, chronic sciatica. 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 She also reported overseeing Lore, 85 y.o., this past weekend on Tuesday to help out her [id number], Corie; she reported fatigue at the end of the day, yet, it was enjoyable. Ha; [place] = brother; Pat = [id number]; - Objective Objective Measurements Please refer to below for progress towards meeting established OT goals: Long-Term Goals 1. Kimberly will be modified independent with upper extremity home exercise program referencing written/ visual instructions as needed. 2. Kimberly will demonstrate improvements w/ L UE strength: 2a. 4+/5 MMT L sh abduction. - Exercises 3 Descriptor UE range of motion. Bilateral sh flex. Hold 20 sec . x 1 rep Bilateral sh flex w/ lat trunk flex/trunk ext. Hold 20 sec. x 1 rep Bilateral sh ext. Hold 20 sec. x 1 rep Bilateral wrist ext w/ elbow ext and forearm supination. Hold 20 sec. Bilateral wrist flex w/ elbow ext and forearm pronation. Hold 20 sec. 2 Descriptor UE strengthening. TB #3. Bilateral elbow ext. Seated. 3 sets; 12 reps TB #3. Bilateral elbow flex. Seated. 3 sets; 12 reps TB #3. Bilateral sh flex. Seated. 3 sets; 12 reps TB #3. Bilateral sh abd. Seated. 3 sets; 12 reps TB #3. Bilateral sh hor abd. Seated. 3 sets; 12 reps TB #3. Unilateral alt seated punches. Seated. 3 sets; 12 reps TB #3. Bilateral bent over row . Seated. 3 sets; 12 reps. N/A 09/05/23 TB #3. Bilateral lat pulldown. Seated. 3 sets; 12 reps TB #3. Bilateral Seated row. 3 x 10. 1 Descriptor UEB. x 10 minutes. Seated. Forwards direction. Height #3. - Assessment Assessment of Improvement Kimberly cont to do quite well w/ TB UE strengthening exercises. Rec considering increasing to 3 sets of 15 reps. Outpatient OT rec to address L UE weakness. Home Exercise Program 08/24/23 = Provided w/ visual and written instructions for TB sh flex, TB sh abd, TB elbow flex, TB elbow ext, TB upright row, and TB sh hor abd . front desk clerk staff to scan documentation into EMR when able to do so. 08/15/23 = Provided w/ TB #3 for home use for UE strengthening ; Kimberly is looking to increase reps; rec 3 sets x 12 . Rec unilateral/bilateral sh flex, sh abd, lat pulldown, hor sh abd; also instructed in seated punches. She is utilizing home blue TB for bicep curls, tricep ext, and rows. - Plan Therapy Recommendations Advance per Rehabilitation Protocol
--- NOTE | 2023-09-12 15:32 | OT.OP.TRT ---
Visit Care Team Role Provider Type Chidi Madera MD Attending Provider Non-Staff Family Provider Primary Care Provider Referring Provider Specialty: Medical Address: [address] [place] [address], [place], [address] Email: Occupational Therapy Treatment Note OT Outpatient Treatment Note - Adult Start: 08/01/23 08:58 Freq: Status: Active Protocol: Document 09/12/23 15:22 AMS (Rec: 09/12/23 15:32 AMS [id number]) OT Outpatient Adult Treatment Note Session Time Visit Start Time 13:45 Visit Stop Time 14:25 Visit Information Visit Number 08/28 Plan of Care Dates 08/01/23 - 09/12/23 Insurance Information [facility]; x 15 auth OT; max 60 PT/OT/SP PCY Setting Treatment Setting Outpatient Care Visit Type Note Type Treatment Note General Information General Information Kimberly is 57 y.o.; right hand dominant; referred to outpatient OT secondary to stroke (which occurred on April 01). She was in the ICU at [facility] x 3 weeks; then transferred to [facility] in [place] for 5 weeks; then she was d/c to her brother's home ([facility]). She received inpatient therapies, as well as HH services. She was instructed in TB bicep curls, tricep extension, and seated rows, hamstring curls, side kicks. She was orientated to day, date, and year. PMH significant for back pain, blood pressure concerns, headaches, hearing problems, memory loss, neck pain, vision problems, chronic sciatica. - Subjective Identification Type Name Identification Reconciled With Medical Record Observations She cont to verbalize concerns regarding her balance particularly w/ trunk flexion; has outpatient PT. She reported doing a set of her UE exercises this morning. Ha; [place] = brother; Pat = [id number]; - Objective Objective Measurements Please refer to below for progress towards meeting established OT goals: Long-Term Goals 1. Kimberly will be modified independent with upper extremity home exercise program referencing written/ visual instructions as needed. 2. Kimberly will demonstrate improvements w/ L UE strength: 2a. 4+/5 MMT L sh abduction. - Exercises 2 Descriptor UE strengthening. TB #3. Bilateral elbow ext. Seated. 2 sets; 12 reps TB #3. Bilateral elbow flex. Seated. 2 sets; 12 reps TB #3. Bilateral sh flex. Seated. 2 sets; 12 reps TB #3. Bilateral sh abd. Seated. 2 sets; 12 reps TB #3. Bilateral sh hor abd. Seated. 2 sets; 12 reps TB #3. Unilateral alt seated punches. Seated. 2 sets; 12 reps TB #3. Bilateral bent over row . Seated. 2 sets; 12 reps. TB #3. Bilateral lat pulldown. Seated. 2 sets; 12 reps. TB #3. Alternating sh press. Seated. 2 sets; 12 reps. N/A 09/05/23 TB #3. Bilateral Seated row. 3 x 10. 1 Descriptor UEB. x 10 minutes. Seated. Forwards direction. Height #3. - Assessment Assessment of Improvement Reviewed UE/distal UE passive ROM post warm-up on UEB prior to UE exercises. Kimberly cont to do quite well w/ TB UE strengthening exercises. Introduced sh press w/ TB wrapped around back. No c/o pain and/or discomfort with completion of any TB UE exercises. Had Kimberly complete 2 sets of all exercises given that she indicated that she did a set of the UE exercises already this morning. Kimberly reports that she is gardening/weeding for 45 min to an hour before onset of fatigue. Kimberly does not have any other appointments scheduled at this time; no further visits are needed at this time unless Kimberly has additional questions re: home exercise program. She cont to verbalize concerns regarding her balance particularly w/ trunk flexion; has outpatient PT. Home Exercise Program 09/12/23 = ROM; passive wrist flexion/passive wrist extension w/ elbow extension. Hold for 20-30 sec. Sh flex with hands/UEs positioned overhead; hold for 20-30 sec. Sh flex w/ lat trunk flex/ contralateral lat trunk ext w/ hold for 20-30 sec in either direction. Instructed in alt sh press w/ TB #3. 3 sets of 12 reps per exercise. 3 x per week or every other day. 08/24/23 = Provided w/ visual and written instructions for TB sh flex, TB sh abd, TB elbow flex, TB elbow ext, TB upright row, and TB sh hor abd . desktop publishing associate staff to scan documentation into EMR when able to do so. 08/15/23 = Provided w/ TB #3 for home use for UE strengthening ; Kimberly is looking to increase reps; rec 3 sets x 12 . Rec unilateral/bilateral sh flex, sh abd, lat pulldown, hor sh abd; also instructed in seated punches. She is utilizing home blue TB for bicep curls, tricep ext, and rows. - Plan Therapy Recommendations Advance per Rehabilitation Protocol
--- NOTE | 2023-10-11 10:55 | OT.OP.DC ---
Visit Care Team Role Provider Type Chidi Madera MD Attending Provider Non-Staff Family Provider Primary Care Provider Referring Provider Address: [address] [place] [address], [place], [address] Email: OT Outpatient OT Outpatient Adult Evaluation Start: 08/01/23 08:58 Freq: Status: Active Protocol: Document 08/01/23 08:58 AMS (Rec: 08/01/23 09:42 AMS [id number]) General Information - Adult Visit Information Visit Number 02/28 Plan of Care Dates 08/01/23 - 09/12/23 Insurance Information [facility]; x 15 auth OT; max 60 PT/OT/SP PCY Session Time Visit Start Time 08:15 Visit Stop Time 08:50 Setting Treatment Setting Outpatient Care Visit Type Note Type Initial Evaluation Referral Referring Physician Chidi Madera MD Identification Identification Confirmed Yes Identification Confirmed By Self Previous Therapy Previous Therapy/Therapies Yes History of Therapy Inpatient; Home Health Goals Retirement Goals Obstetrics Specialist Goals 1. Kimberly will be modified independent with upper extremity home exercise program referencing written/ visual instructions as needed. 2. Kimberly will demonstrate improvements w/ L UE strength: 2a. 4+/5 MMT L sh abduction. Assessment/Plan Assessment Treatment Assessment Kimberly is 57 y.o.; right hand dominant; referred to outpatient OT secondary to stroke (which occurred on April 01). She was in the ICU at [facility] x 3 weeks; then transferred to [facility] in [place] for 5 weeks; then she was d/c to her brother's home ([place]). She received inpatient therapies, as well as services. She was instructed in TB bicep curls, tricep extension, and seated rows, hamstring curls, side kicks. She was orientated to day, date, and year. PMH significant for back pain, blood pressure concerns, headaches, hearing problems, memory loss, neck pain, vision problems, chronic sciatica. Whole Body Pain Assessment Grid completed; indication of 5 out of 10 on on pain scale relative to lateral bilateral scapular/inferior shoulders; indication of 7 out of 10 on pain scale relative left lower lumbar region. QuickDASH UE Outcome Measure Score = 40.91; QuickDASH UE Work Module Score = 50.00. PLOF = independent w/ BADLS and IADLS. 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 Current level of function = Kimberly is residing w/ her brother Benji , Benji's , and mother-in- law. She is not working. She is not driving; she just recently started using [employer] (started last Tuesday). She obtained new glasses since stroke (last Tuesday from fitness sales associate). She is independent with dressing, g/h, self-feeding, bathing and toileting. She has done some meal prep (prepared x 3 meals), some weeding in the garden, laundry and light house keeping tasks. She has a work station set-up in the home; she has access to a calendar, completes a daily diary, does word searches/ sudoku puzzles. Written signage is within the home to help w/ orientation/short term memory. She has been able to correct self when mistakes are made. Screened visual scanning abilities; correctly identified 35/36 single items w/ visual scanning activity single targets x 2; correctly identified 40/40 2 digit items w/ visual scanning activity double digit targets x 2. (+) orientation to midline w/ UEs in frontal plane; above head. Able to oppose digits to each finger pad bilaterally w/ EO and EC. B UE AROM WFL. Overall, good UE strength 4+/5 MMT sh flex, ext, add, hor sh abd, hor sh add, IR, ER, elbow flex, elbow ext; however, 3+/5 MMT L sh abd. Outpatient OT rec to address L UE weakness. Plan Length of treatment (weeks) 6 Plan of Care Start Date 08/01/23 Plan of Care End Date 09/12/23 Treatment Frequency Once a Week Therapeutic Contents Active Range of Motion, Functional Activities,Home Exercise Program,Joint Protection,Education, Neurodevelopment Treatment, Neuromuscular Re-Education, Self-Care,Stretching/ Flexibility Activities, Therapeutic Activities, Therapeutic Exercises, Modalities Additional Areas of Treatment Heat/Ice/Contrast/Ultrasound Other Suggested Referrals MEDICATION TECHNICIAN and PT Functional Wrist/Hand Scan Hand Side Sensory Assessment Sensory Profile2 OT Outpatient Treatment Note - Adult Start: 08/01/23 08:58 Freq: Status: Active Protocol: Document 10/11/23 10:47 AMS (Rec: 10/11/23 10:55 AMS [id number]) OT Outpatient Adult Treatment Note Visit Information Visit Number 08/28 Plan of Care Dates 08/01/23 - 09/12/23 Insurance Information [facility]; x 15 auth OT; max 60 PT/OT/SP PCY Setting Treatment Setting Outpatient Care Visit Type Note Type Discharge Summary General Information General Information Kimberly is 57 y.o.; right hand dominant; referred to outpatient OT secondary to stroke (which occurred on April 01). She was in the ICU at [facility] x 3 weeks; then transferred to [facility] in [place] for 5 weeks; then she was d/c to her brother's home ([place]). She received inpatient therapies, as well as services. She was instructed in TB bicep curls, tricep extension, and seated rows, hamstring curls, side kicks. She was orientated to day, date, and year. PMH significant for back pain, blood pressure concerns, headaches, hearing problems, memory loss, neck pain, vision problems, chronic sciatica. - Subjective Observations Kimberly's outpatient OT POC on 09/12/23 and her last appt was on 09/12/23. No more appointments are needed at this time. Recommend d/c from outpatient OT at this time. Patient/Caregiver Compliance with Home Excellent Exercise Program - Objective Objective Measurements Please refer to below for progress towards meeting established OT goals: Retirement Goals ALL GOALS D/C 10/11/23 1. Kimberly will be modified independent with upper extremity home exercise program referencing written/ visual instructions as needed. 2. Kimberly will demonstrate improvements w/ L UE strength: 2a. 4+/5 MMT L sh abduction. - - Assessment Assessment of Improvement Kimberly's outpatient OT POC on 09/12/23 and her last appt was on 09/12/23. No more appointments are needed at this time. Recommend d/c from outpatient OT at this time. - Plan Therapy Recommendations Discharge from Occupational Therapy
== END 2023-10-21 08:54 | disposition home or self-care (01) ==
LOC: OT 13:45
PROVIDERS: Family Provider Family Medicine; PCP Family Medicine; Referring Provider Family Medicine; Visit Provider Family Medicine
DX: F09 Unspecified mental disorder due to known physiological condition (principal); R53.1 Weakness
CPT/HCPCS: 97110; 97165

== ENCOUNTER 2023-11-15 08:15 | Outpatient (RCR) | payer OTHER, SELFPAY ==
--- NOTE | 2023-08-17 18:06 | PT.OIE ---
Current Diagnoses Unspecified mental disorder due to known physiological condition (08/17/23) Other subjective visual disturbances (08/17/23) Unsteadiness on feet (08/17/23) Other fatigue (08/17/23) Visit Care Team Role Provider Type Chidi Madera MD Attending Provider Non-Staff Family Provider Primary Care Provider Referring Provider Specialty: Medical Address: [address] [place] [address], [id number] Email: Physical Therapy Initial Evaluation PT-OP-A Visit Information Start: 08/17/23 17:40 Freq: Status: Active Protocol: Document 08/17/23 16:45 DCW (Rec: 08/17/23 17:55 DCW [id number]) Out-Patient Physical Therapy Visit Information Visit Information Visit Type Initial Evaluation Visit Start Time 16:45 Visit Stop Time 17:35 Visit Number 1 Number of CIGARETTE EXAMINER Visits 0 Evaluation Information Evaluation Date 08/17/23 PT-OP-B Current Condition Start: 08/17/23 17:40 Freq: Status: Active Protocol: Document 08/17/23 16:45 DCW (Rec: 08/17/23 17:55 DCW [id number]) Current Condition History of Current Condition Onset Date March Current Complaints visual loss, weakness, fatigue , and cognitive decline s/p CVA History of Current Condition Pt presents to skilled therapy secondary to 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 Pt notes left- sided weakness, fatigue, gait deficits, decreased balance, falls, and right visual field defects. Pt has been working very hard since CVA, first a long stay at [place], and then spending eight weeks in inpatient rehab. Pt admits that despite the CVA in March, she doesn't remember anything between March and May, and and things are pretty fuzzy even for a few months prior to the CVA. Pt currently living with her brother, who attends her PT eval with her. Has made great strides already, feeling much better with her gait. Reports left side is still weaker, it lags behind her right, will often have to stop to reset. Worse when she begins to fatigue or with distraction. Has been practicing taking longer strides. Also has right -sided visual field loss, mainly her peripheral, however they have been working on visual scanning both on their boat and walking through the grocery store. Treatment Goals Patient/Caregiver Goals Improve activity tolerance to be able to do more gardening/ weeding, and return to driving . PT-OP-C Subjective Start: 08/17/23 17:40 Freq: Status: Active Protocol: Document 08/17/23 16:45 DCW (Rec: 08/17/23 17:55 DCW [id number]) OP-PT Subjective Patient Comments Patient Comments apparently I've been through a lot, but I don't remember most of it. PT-OP-D Balance Start: 08/17/23 17:40 Freq: Status: Active Protocol: Document 08/17/23 16:45 DCW (Rec: 08/17/23 17:55 DCW [id number]) OP-PT Balance Assessment Sitting Balance Static Sitting Balance Ability Normal Dynamic Sitting Balance Ability Normal Standing Balance Static Standing Balance Ability Good Dynamic Standing Balance Ability Good Device Used None Balance Tests Single Limb Standing Single Limb- Right 8 Single Limb- Left 11 Tandem Tandem Standing 30+ bilaterally Marx Fall Scale Copyright Permission PT-OP-E Functional Tests Start: 08/17/23 17:40 Freq: Status: Active Protocol: Document 08/17/23 16:45 DCW (Rec: 08/17/23 17:55 DCW [id number]) Functional Tests 6 Minute Walk Test Distance 1189' Device Used None Comments 3.30 ft/sec PT-OP-M Strength Start: 08/17/23 17:40 Freq: Status: Active Protocol: Document 08/17/23 16:45 DCW (Rec: 08/17/23 17:55 DCW [id number]) Hip Strength Hip Manual Muscle Testing Right Flexion (L2) 4+ Good+ Abduction 4+ Good+ Adduction 4+ Good+ External Rotation 4+ Good+ Internal Rotation 4+ Good+ Left Flexion (L2) 4- Good- Abduction 4 Good Adduction 4- Good- External Rotation 4 Good Internal Rotation 4 Good Knee Strength Knee Manual Muscle Testing Right Flexion (S2) 4+ Good+ Extension (L3) 4+ Good+ Left Flexion (S2) 4 Good Extension (L3) 4 Good PT-OP-T Assessment and Plan Start: 08/17/23 17:40 Freq: Status: Active Protocol: Document 08/17/23 16:45 DCW (Rec: 08/17/23 18:06 [facility] [id number]) Physical Therapy Assessment Rehab Potential Rehabilitation Potential Good Evaluation Complexity Number of Personal Factors/Comorbidities 3 or More Number of Body Systems Impaired 4 or More Clinical Presentation at Evaluation Unstable Impairments Impairments Activity Tolerance,Functional Activities,Functional Mobility ,Gait,Strength,Visual Motor Goals Three Impairment Pt ambulates within six inches of L wall in hallway due to R visual deficit Retirement Goal (LTG) Pt to demonstrate appropriate visual scanning during gait 80 % of the time without verbal cues in order to increase visual field and improve comfort ambulating away from left-hand wall. 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 Pt has received acute rehab, home health, and is finally independent enough for out- patient rehabilitation. Pt is exhibiting very good recovery so far, per brother, most has occurred within the last month . Pt already performing a lot of very good home exercises, including walking, working on increased stride length, and visual scanning. Pt would benefit from skilled therapeutic intervention for more visual scanning and oculomotor exercises, balance challenges, increased activity tolerance, LE strengthening, and improving left foot clearance. Physical Therapy Plan Frequency and Duration Frequency of Treatment 2x/Week Plan of Care Start Date 08/17/23 Plan of Care End Date 11/15/23 Therapeutic Interventions Therapeutic Interventions Balance Training,Gait Training ,Home Exercise Program,Manual Therapy,Neuromuscular Re- education,Patient/Caregiver Education,Self-Care/Home Management,Soft Tissue Mobilization,Therapeutic Activities,Therapeutic Exercises,Vestibular Rehabilitation Next Visit Focus/Plan Next Note Type Treatment Note Next Visit Plan Nick nur, oculomotor exercises, dynamic balance challenges
--- NOTE | 2023-08-17 18:07 | PT.OPPOC ---
Physical, Occupational & Speech Therapy At [facility] Current Diagnoses Unspecified mental disorder due to known physiological condition (08/17/23) Other subjective visual disturbances (08/17/23) Unsteadiness on feet (08/17/23) Other fatigue (08/17/23) Visit Care Team Role Provider Type Chidi Madera MD Attending Provider Non-Staff Family Provider Primary Care Provider Referring Provider Specialty: Medical Address: [address] [place] [address], [id number] Email: Plan Of Care PT-OP-T Assessment and Plan Start: 08/17/23 17:40 Freq: Status: Active Protocol: Document 08/17/23 16:45 DCW (Rec: 08/17/23 18:06 DCW [id number]) Physical Therapy Assessment Rehab Potential Rehabilitation Potential Good Evaluation Complexity Number of Personal Factors/Comorbidities 3 or More Number of Body Systems Impaired 4 or More Clinical Presentation at Evaluation Unstable Impairments Impairments Activity Tolerance,Functional Activities,Functional Mobility ,Gait,Strength,Visual Motor Goals Three Impairment Pt ambulates within six inches of L wall in hallway due to R visual deficit Food Safety Technician Goal (LTG) Pt to demonstrate appropriate visual scanning during gait 80 % of the time without verbal cues in order to increase visual field and improve comfort ambulating away from left-hand wall. 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 Pt has received acute rehab, home health, and is finally independent enough for out- patient rehabilitation. Pt is exhibiting very good recovery so far, per brother, most has occurred within the last month . Pt already performing a lot of very good home exercises, including walking, working on increased stride length, and visual scanning. Pt would benefit from skilled therapeutic intervention for more visual scanning and oculomotor exercises, balance challenges, increased activity tolerance, LE strengthening, and improving left foot clearance. Physical Therapy Plan Frequency and Duration Frequency of Treatment 2x/Week Plan of Care Start Date 08/17/23 Plan of Care End Date 11/15/23 Therapeutic Interventions Therapeutic Interventions Balance Training,Gait Training ,Home Exercise Program,Manual Therapy,Neuromuscular Re- education,Patient/Caregiver Education,Self-Care/Home Management,Soft Tissue Mobilization,Therapeutic Activities,Therapeutic Exercises,Vestibular Rehabilitation Next Visit Focus/Plan Next Note Type Treatment Note Next Visit Plan Cone disha aguilera nur, oculomotor exercises, dynamic balance challenges Plan of Care Dates Plan of Care Start Date 08/17/23 Plan of Care End Date 11/15/23 Electronically Signed by: Giovanny Lowe, PT 08/17/23 3128 If you are in agreement with this Plan of Care, please return a signed and dated copy. I have reviewed this Plan of Care and certify that the skilled therapy services above are required to meet the patient?s needs. Physician Signature Date Printed Name and Credentials Clinical Instructor Signature Printed Name and Credentials
--- NOTE | 2023-08-22 16:13 | PT.OTN ---
Current Diagnoses Unspecified mental disorder due to known physiological condition (08/22/23) Other subjective visual disturbances (08/22/23) Unsteadiness on feet (08/22/23) Other fatigue (08/22/23) Physical Therapy Treatment Note PT-OP-A Visit Information Start: 08/17/23 17:40 Freq: Status: Active Protocol: Document 08/22/23 15:15 DCW (Rec: 08/22/23 16:13 DCW [id number]) Out-Patient Physical Therapy Visit Information Visit Information Visit Type Treatment Note Visit Start Time 15:15 Visit Stop Time 16:00 Visit Number 2 Number of PLUGMAN Visits 0 Evaluation Information Evaluation Date 08/17/23 PT-OP-B Current Condition Start: 08/17/23 17:40 Freq: Status: Active Protocol: Document 08/17/23 16:45 DCW (Rec: 08/17/23 17:55 DCW [id number]) Current Condition History of Current Condition Onset Date March Current Complaints visual loss, weakness, fatigue , and cognitive decline s/p CVA History of Current Condition Pt presents to skilled therapy secondary to 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 Pt notes left- sided weakness, fatigue, gait deficits, decreased balance, falls, and right visual field defects. Pt has been working very hard since CVA, first a long stay at [place], and then spending eight weeks in inpatient rehab. Pt admits that despite the CVA in March, she doesn't remember anything between March and May, and and things are pretty fuzzy even for a few months prior to the CVA. Pt currently living with her brother, who attends her PT eval with her. Has made great strides already, feeling much better with her gait. Reports left side is still weaker, it lags behind her right, will often have to stop to reset. Worse when she begins to fatigue or with distraction. Has been practicing taking longer strides. Also has right -sided visual field loss, mainly her peripheral, however they have been working on visual scanning both on their boat and walking through the grocery store. Treatment Goals Patient/Caregiver Goals Improve activity tolerance to be able to do more gardening/ weeding, and return to driving . PT-OP-C Subjective Start: 08/17/23 17:40 Freq: Status: Active Protocol: Document 08/22/23 15:15 DCW (Rec: 08/22/23 16:13 DCW [id number]) OP-PT Subjective Patient Comments Patient Comments Pt reports she's doing well, just coming from Speech therapy. PT-OP-D Balance Start: 08/17/23 17:40 Freq: Status: Active Protocol: Document 08/17/23 16:45 DCW (Rec: 08/17/23 17:55 DCW [id number]) OP-PT Balance Assessment Sitting Balance Static Sitting Balance Ability Normal Dynamic Sitting Balance Ability Normal Standing Balance Static Standing Balance Ability Good Dynamic Standing Balance Ability Good Device Used None Balance Tests Single Limb Standing Single Limb- Right 8 Single Limb- Left 11 Tandem Tandem Standing 30+ bilaterally Marx Fall Scale Copyright Permission PT-OP-E Functional Tests Start: 08/17/23 17:40 Freq: Status: Active Protocol: Document 08/17/23 16:45 DCW (Rec: 08/17/23 17:55 DCW [id number]) Functional Tests 6 Minute Walk Test Distance 1189' Device Used None Comments 3.30 ft/sec PT-OP-M Strength Start: 08/17/23 17:40 Freq: Status: Active Protocol: Document 08/17/23 16:45 DCW (Rec: 08/17/23 17:55 DCW [id number]) Hip Strength Hip Manual Muscle Testing Right Flexion (L2) 4+ Good+ Abduction 4+ Good+ Adduction 4+ Good+ External Rotation 4+ Good+ Internal Rotation 4+ Good+ Left Flexion (L2) 4- Good- Abduction 4 Good Adduction 4- Good- External Rotation 4 Good Internal Rotation 4 Good Knee Strength Knee Manual Muscle Testing Right Flexion (S2) 4+ Good+ Extension (L3) 4+ Good+ Left Flexion (S2) 4 Good Extension (L3) 4 Good PT-OP-Q Treatments Start: 08/17/23 17:40 Freq: Status: Active Protocol: Document 08/22/23 15:15 DCW (Rec: 08/22/23 16:13 DCW [id number]) Gym Equipment Shuttle Balance Red Details WBOS, Staggered, Lateral WS Neuro Re-Education Treatment Balance Activities Uneven Ambulation Details Hurdles Comments Objects under blue pads Vestibular Rehabilitation Corrective Saccades Details Two targets; Eyes, then head X2 Viewing Details Target and head move in opposite directions X1 Viewing Details Static target, head turns VOR Retraining Details Target and head move together PT-OP-T Assessment and Plan Start: 08/17/23 17:40 Freq: Status: Active Protocol: Document 08/22/23 15:15 DCW (Rec: 08/22/23 16:13 DCW [id number]) Physical Therapy Assessment Impairments Impairments Activity Tolerance,Functional Activities,Functional Mobility ,Gait,Strength,Visual Motor Goals Three Impairment Pt ambulates within six inches of L wall in hallway due to R visual deficit Machine Operator Transplanter Goal (LTG) Pt to demonstrate appropriate visual scanning during gait 80 % of the time without verbal cues in order to increase visual field and improve comfort ambulating away from left-hand wall. LTG Duration 11/15/23 Two Impairment Pt able to tolerate weeding garden for 20 minutes Group Home Goal (LTG) Pt to report ability to weed garden for 45 minutes without rest break in order to demonstrate increased activity tolerance LTG Duration 11/15/23 One Impairment Pt does not have an appropriate home exercise program Short Term Goal (STG) Pt to be independent and compliant with an appropriate HEP STG Duration 09/17/23 Assessment Summary Assessment Good response to treatment today, pt had no difficulty with uneven surface ambulation . Did struggle a bit with shuttle balance, and noted oculomotor exercises were sufficiently challenging. Pt to continue oculomotor exercises for HEP. Physical Therapy Plan Frequency and Duration Frequency of Treatment 2x/Week Plan of Care Start Date 08/17/23 Plan of Care End Date 11/15/23 Therapeutic Interventions Therapeutic Interventions Balance Training,Gait Training ,Home Exercise Program,Manual Therapy,Neuromuscular Re- education,Patient/Caregiver Education,Self-Care/Home Management,Soft Tissue Mobilization,Therapeutic Activities,Therapeutic Exercises,Vestibular Rehabilitation Next Visit Focus/Plan Next Note Type Treatment Note Next Visit Plan Nick nur, oculomotor exercises, dynamic balance challenges
--- NOTE | 2023-08-24 16:07 | PT.OTN ---
Current Diagnoses Unspecified mental disorder due to known physiological condition (08/24/23) Other subjective visual disturbances (08/24/23) Unsteadiness on feet (08/24/23) Other fatigue (08/24/23) Physical Therapy Treatment Note PT-OP-A Visit Information Start: 08/17/23 17:40 Freq: Status: Active Protocol: Document 08/24/23 15:15 DCW (Rec: 08/24/23 16:07 DCW [id number]) Out-Patient Physical Therapy Visit Information Visit Information Visit Type Treatment Note Visit Start Time 15:15 Visit Stop Time 16:00 Visit Number 3 Number of FAMILY DAY CARE PROVIDER Visits 0 Evaluation Information Evaluation Date 08/17/23 PT-OP-B Current Condition Start: 08/17/23 17:40 Freq: Status: Active Protocol: Document 08/17/23 16:45 DCW (Rec: 08/17/23 17:55 DCW [id number]) Current Condition History of Current Condition Onset Date March Current Complaints visual loss, weakness, fatigue , and cognitive decline s/p CVA History of Current Condition Pt presents to skilled therapy secondary to 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 Pt notes left- sided weakness, fatigue, gait deficits, decreased balance, falls, and right visual field defects. Pt has been working very hard since CVA, first a long stay at [facility], and then spending eight weeks in inpatient rehab. Pt admits that despite the CVA in March, she doesn't remember anything between March and May, and and things are pretty fuzzy even for a few months prior to the CVA. Pt currently living with her brother, who attends her PT eval with her. Has made great strides already, feeling much better with her gait. Reports left side is still weaker, it lags behind her right, will often have to stop to reset. Worse when she begins to fatigue or with distraction. Has been practicing taking longer strides. Also has right -sided visual field loss, mainly her peripheral, however they have been working on visual scanning both on their boat and walking through the grocery store. Treatment Goals Patient/Caregiver Goals Improve activity tolerance to be able to do more gardening/ weeding, and return to driving . PT-OP-C Subjective Start: 08/17/23 17:40 Freq: Status: Active Protocol: Document 08/24/23 15:15 DCW (Rec: 08/24/23 16:07 DCW [id number]) OP-PT Subjective Patient Comments Patient Comments Pt has been compliant with HEP at home, feels pretty uncoordinated with the X2 exercises. PT-OP-D Balance Start: 08/17/23 17:40 Freq: Status: Active Protocol: Document 08/17/23 16:45 DCW (Rec: 08/17/23 17:55 DCW [id number]) OP-PT Balance Assessment Sitting Balance Static Sitting Balance Ability Normal Dynamic Sitting Balance Ability Normal Standing Balance Static Standing Balance Ability Good Dynamic Standing Balance Ability Good Device Used None Balance Tests Single Limb Standing Single Limb- Right 8 Single Limb- Left 11 Tandem Tandem Standing 30+ bilaterally Amrx Fall Scale Copyright Permission PT-OP-E Functional Tests Start: 08/17/23 17:40 Freq: Status: Active Protocol: Document 08/17/23 16:45 DCW (Rec: 08/17/23 17:55 DCW [id number]) Functional Tests 6 Minute Walk Test Distance 1189' Device Used None Comments 3.30 ft/sec PT-OP-M Strength Start: 08/17/23 17:40 Freq: Status: Active Protocol: Document 08/17/23 16:45 DCW (Rec: 08/17/23 17:55 DCW [id number]) Hip Strength Hip Manual Muscle Testing Right Flexion (L2) 4+ Good+ Abduction 4+ Good+ Adduction 4+ Good+ External Rotation 4+ Good+ Internal Rotation 4+ Good+ Left Flexion (L2) 4- Good- Abduction 4 Good Adduction 4- Good- External Rotation 4 Good Internal Rotation 4 Good Knee Strength Knee Manual Muscle Testing Right Flexion (S2) 4+ Good+ Extension (L3) 4+ Good+ Left Flexion (S2) 4 Good Extension (L3) 4 Good PT-OP-Q Treatments Start: 08/17/23 17:40 Freq: Status: Active Protocol: Document 08/24/23 15:15 DCW (Rec: 08/24/23 16:07 DCW [id number]) Gym Equipment Shuttle Balance Red Details WBOS, Staggered, Lateral WS Neuro Re-Education Treatment Balance Activities Tandem Details Tandem Ambulation Comments Fwd, Bkwd SLS Details SLS Surface Firm, then AirEx Comments Disco Ball Vestibular Rehabilitation X1 Viewing Details Static target, head turns Comments Walking in hallway, 90 bpm metronome Other Activities Easter Egg Pham Comments Visual scanning for hidden cones PT-OP-T Assessment and Plan Start: 08/17/23 17:40 Freq: Status: Active Protocol: Document 08/24/23 15:15 DCW (Rec: 08/24/23 16:07 DCW [id number]) Physical Therapy Assessment Impairments Impairments Activity Tolerance,Functional Activities,Functional Mobility ,Gait,Strength,Visual Motor Goals Three Impairment Pt ambulates within six inches of L wall in hallway due to R visual deficit Alf Goal (LTG) Pt to demonstrate appropriate visual scanning during gait 80 % of the time without verbal cues in order to increase visual field and improve comfort ambulating away from left-hand wall. LTG Duration 11/15/23 Two Impairment Pt able to tolerate weeding garden for 20 minutes Alf Goal (LTG) Pt to report ability to weed garden for 45 minutes without rest break in order to demonstrate increased activity tolerance LTG Duration 11/15/23 One Impairment Pt does not have an appropriate home exercise program Short Term Goal (STG) Pt to be independent and compliant with an appropriate HEP STG Duration 09/17/23 Assessment Summary Assessment Difficulty with SLS, both with and without compliant surface , and with and without disco ball. Did well with tandem ambulation and X1 during ambulation. Pt excited to continue activities for HEP Physical Therapy Plan Frequency and Duration Frequency of Treatment 2x/Week Plan of Care Start Date 08/17/23 Plan of Care End Date 11/15/23 Therapeutic Interventions Therapeutic Interventions Balance Training,Gait Training ,Home Exercise Program,Manual Therapy,Neuromuscular Re- education,Patient/Caregiver Education,Self-Care/Home Management,Soft Tissue Mobilization,Therapeutic Activities,Therapeutic Exercises,Vestibular Rehabilitation Next Visit Focus/Plan Next Note Type Treatment Note Next Visit Plan Cone easter egg pham, oculomotor exercises, dynamic balance challenges
--- NOTE | 2023-09-01 16:51 | PT.OTN ---
Current Diagnoses Unspecified mental disorder due to known physiological condition (09/01/23) Other subjective visual disturbances (09/01/23) Unsteadiness on feet (09/01/23) Other fatigue (09/01/23) Physical Therapy Treatment Note PT-OP-A Visit Information Start: 08/17/23 17:40 Freq: Status: Active Protocol: Document 09/01/23 15:17 SW (Rec: 09/01/23 16:50 SW [id number]) Out-Patient Physical Therapy Visit Information Visit Information Visit Type Treatment Note Visit Start Time 14:33 Visit Stop Time 15:13 Visit Number 4 Number of KNOWLEDGE ANALYST Visits 1 PT-OP-B Current Condition Start: 08/17/23 17:40 Freq: Status: Active Protocol: Document 08/17/23 16:45 DCW (Rec: 08/17/23 17:55 DCW [id number]) Current Condition History of Current Condition Onset Date March Current Complaints visual loss, weakness, fatigue , and cognitive decline s/p CVA History of Current Condition Pt presents to skilled therapy secondary to 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 Pt notes left- sided weakness, fatigue, gait deficits, decreased balance, falls, and right visual field defects. Pt has been working very hard since CVA, first a long stay at [facility], and then spending eight weeks in inpatient rehab. Pt admits that despite the CVA in March, she doesn't remember anything between March and May, and and things are pretty fuzzy even for a few months prior to the CVA. Pt currently living with her brother, who attends her PT eval with her. Has made great strides already, feeling much better with her gait. Reports left side is still weaker, it lags behind her right, will often have to stop to reset. Worse when she begins to fatigue or with distraction. Has been practicing taking longer strides. Also has right -sided visual field loss, mainly her peripheral, however they have been working on visual scanning both on their boat and walking through the grocery store. Treatment Goals Patient/Caregiver Goals Improve activity tolerance to be able to do more gardening/ weeding, and return to driving . PT-OP-C Subjective Start: 08/17/23 17:40 Freq: Status: Active Protocol: Document 09/01/23 15:17 SW (Rec: 07/18/24 16:50 SW [id number]) OP-PT Subjective Patient Comments Patient Comments Pt reports feels eyes are getting stronger. Pt reports able to scan better. Colored anchors used for reading have been helpful. PT-OP-D Balance Start: 08/17/23 17:40 Freq: Status: Active Protocol: Document 08/17/23 16:45 DCW (Rec: 08/17/23 17:55 DCW [id number]) OP-PT Balance Assessment Sitting Balance Static Sitting Balance Ability Normal Dynamic Sitting Balance Ability Normal Standing Balance Static Standing Balance Ability Good Dynamic Standing Balance Ability Good Device Used None Balance Tests Single Limb Standing Single Limb- Right 8 Single Limb- Left 11 Tandem Tandem Standing 30+ bilaterally Marx Fall Scale Copyright Permission PT-OP-E Functional Tests Start: 08/17/23 17:40 Freq: Status: Active Protocol: Document 08/17/23 16:45 DCW (Rec: 08/17/23 17:55 DCW [id number]) Functional Tests 6 Minute Walk Test Distance 1189' Device Used None Comments 3.30 ft/sec PT-OP-M Strength Start: 08/17/23 17:40 Freq: Status: Active Protocol: Document 08/17/23 16:45 DCW (Rec: 08/17/23 17:55 DCW [id number]) Hip Strength Hip Manual Muscle Testing Right Flexion (L2) 4+ Good+ Abduction 4+ Good+ Adduction 4+ Good+ External Rotation 4+ Good+ Internal Rotation 4+ Good+ Left Flexion (L2) 4- Good- Abduction 4 Good Adduction 4- Good- External Rotation 4 Good Internal Rotation 4 Good Knee Strength Knee Manual Muscle Testing Right Flexion (S2) 4+ Good+ Extension (L3) 4+ Good+ Left Flexion (S2) 4 Good Extension (L3) 4 Good PT-OP-Q Treatments Start: 08/17/23 17:40 Freq: Status: Active Protocol: Document 09/01/23 15:17 SW (Rec: 09/01/23 16:50 SW [id number]) Gym Equipment Shuttle Balance Red Details WBOS, Staggered, Lateral WS Comments Pt challenged, pt required verbal cues for decreased visual input Pt lowered COG for more stability CGA Neuro Re-Education Treatment Balance Activities Foam Details NBOS with head turns Surface Foam Equipment // bars, CGA Comments pt challenged jus with sagital plane head movement, requiring ART THERAPY CERTIFIED SUPERVISOR/CGA to prevent posterior LOB [place]oca Details lateral balance challenge Surface stable Equipment // bars, CGA Comments pt tolerated well Tandem Details Tandem Ambulation Comments Fwd, Bkwd cues for slower pace to further challenge balance SLS Details SLS Surface AirEx Comments required occasional ART THERAPY CERTIFIED SUPERVISOR prn, CGA Uneven Ambulation Details Hurdles Comments stepping stones, occasional contact of hussein with decreased RLE foot clearance of hussein Vestibular Rehabilitation X1 Viewing Details Static target, head turns Comments Walking in hallway, 90 bpm metronome Slight gait deviation to left Other Activities Easter Egg Pham Comments Visual scanning for hidden cones PT-OP-T Assessment and Plan Start: 08/17/23 17:40 Freq: Status: Active Protocol: Document 09/01/23 15:17 SW (Rec: 09/01/23 16:50 SW [id number]) Physical Therapy Assessment Goals Three Impairment Pt ambulates within six inches of L wall in hallway due to R visual deficit Cake Stripper Goal (LTG) Pt to demonstrate appropriate visual scanning during gait 80 % of the time without verbal cues in order to increase visual field and improve comfort ambulating away from left-hand wall. LTG Duration 11/15/23 Two Impairment Pt able to tolerate weeding garden for 20 minutes Cake Stripper Goal (LTG) Pt to report ability to weed garden for 45 minutes without rest break in order to demonstrate increased activity tolerance LTG Duration 11/15/23 One Impairment Pt does not have an appropriate home exercise program Short Term Goal (STG) Pt to be independent and compliant with an appropriate HEP STG Duration 09/17/23 Assessment Summary Assessment Continued balance challenges, and easter egg pham to improve visual scanning with emphasis on right side, to promote scanning to the right. During ambulation with head turns, pt deviated to left side, improved with repetition . Pt challenged during balance exercises this session when instructed to slow down to increase time in a SLS with dynamic balance challenges. Physical Therapy Plan Frequency and Duration Frequency of Treatment 2x/Week Plan of Care Start Date 08/17/23 Plan of Care End Date 11/15/23 Therapeutic Interventions Therapeutic Interventions Balance Training,Gait Training ,Home Exercise Program,Manual Therapy,Neuromuscular Re- education,Patient/Caregiver Education,Self-Care/Home Management,Soft Tissue Mobilization,Therapeutic Activities,Therapeutic Exercises,Vestibular Rehabilitation Next Visit Focus/Plan Next Note Type Treatment Note Next Visit Plan Cone easter egg pham, oculomotor exercises, dynamic balance challenges
--- NOTE | 2023-09-07 15:16 | PT.OTN ---
Current Diagnoses Unspecified mental disorder due to known physiological condition (09/07/23) Other subjective visual disturbances (09/07/23) Unsteadiness on feet (09/07/23) Other fatigue (09/07/23) Physical Therapy Treatment Note PT-OP-A Visit Information Start: 08/17/23 17:40 Freq: Status: Active Protocol: Document 09/07/23 15:13 TS (Rec: 09/07/23 16:38 TS [id number]) Out-Patient Physical Therapy Visit Information Visit Information Visit Type Treatment Note Visit Start Time 15:16 Visit Stop Time 15:58 Visit Number 5 Number of VINEGAR MAKER Visits 2 PT-OP-B Current Condition Start: 08/17/23 17:40 Freq: Status: Active Protocol: Document 08/17/23 16:45 DCW (Rec: 08/17/23 17:55 DCW [id number]) Current Condition History of Current Condition Onset Date March Current Complaints visual loss, weakness, fatigue , and cognitive decline s/p CVA History of Current Condition Pt presents to skilled therapy secondary to 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 Pt notes left- sided weakness, fatigue, gait deficits, decreased balance, falls, and right visual field defects. Pt has been working very hard since CVA, first a long stay at [facility], and then spending eight weeks in inpatient rehab. Pt admits that despite the CVA in March, she doesn't remember anything between March and May, and and things are pretty fuzzy even for a few months prior to the CVA. Pt currently living with her brother, who attends her PT eval with her. Has made great strides already, feeling much better with her gait. Reports left side is still weaker, it lags behind her right, will often have to stop to reset. Worse when she begins to fatigue or with distraction. Has been practicing taking longer strides. Also has right -sided visual field loss, mainly her peripheral, however they have been working on visual scanning both on their boat and walking through the grocery store. Treatment Goals Patient/Caregiver Goals Improve activity tolerance to be able to do more gardening/ weeding, and return to driving . PT-OP-C Subjective Start: 08/17/23 17:40 Freq: Status: Active Protocol: Document 09/07/23 15:13 TS (Rec: 09/07/23 16:38 TS [id number]) OP-PT Subjective Patient Comments Patient Comments Pt reports not much has changed since last time, looking up and down is hard for her and neglects R side. PT-OP-D Balance Start: 08/17/23 17:40 Freq: Status: Active Protocol: Document 08/17/23 16:45 DCW (Rec: 08/17/23 17:55 DCW [id number]) OP-PT Balance Assessment Sitting Balance Static Sitting Balance Ability Normal Dynamic Sitting Balance Ability Normal Standing Balance Static Standing Balance Ability Good Dynamic Standing Balance Ability Good Device Used None Balance Tests Single Limb Standing Single Limb- Right 8 Single Limb- Left 11 Tandem Tandem Standing 30+ bilaterally Marx Fall Scale Copyright Permission PT-OP-E Functional Tests Start: 08/17/23 17:40 Freq: Status: Active Protocol: Document 08/17/23 16:45 DCW (Rec: 08/17/23 17:55 DCW [id number]) Functional Tests 6 Minute Walk Test Distance 1189' Device Used None Comments 3.30 ft/sec PT-OP-M Strength Start: 08/17/23 17:40 Freq: Status: Active Protocol: Document 08/17/23 16:45 DCW (Rec: 08/17/23 17:55 DCW [id number]) Hip Strength Hip Manual Muscle Testing Right Flexion (L2) 4+ Good+ Abduction 4+ Good+ Adduction 4+ Good+ External Rotation 4+ Good+ Internal Rotation 4+ Good+ Left Flexion (L2) 4- Good- Abduction 4 Good Adduction 4- Good- External Rotation 4 Good Internal Rotation 4 Good Knee Strength Knee Manual Muscle Testing Right Flexion (S2) 4+ Good+ Extension (L3) 4+ Good+ Left Flexion (S2) 4 Good Extension (L3) 4 Good PT-OP-Q Treatments Start: 08/17/23 17:40 Freq: Status: Active Protocol: Document 09/07/23 15:13 TS (Rec: 09/07/23 16:38 TS [id number]) Gym Equipment Shuttle Balance Red Details WBOS, Staggered, Lateral WS, HT's. Comments Pt challenged, pt required verbal cues for decreased visual input Pt lowered COG for more stability CGA/Ranjan for balance at times Neuro Re-Education Treatment Balance Activities Foam Details NBOS with head turns Surface Foam Equipment // bars, CGA Comments Requires cues for increased rotation to R side. Carioca Details lateral balance challenge Surface stable Equipment // bars, CGA Comments Does well with increased speed Tandem Details Tandem Ambulation Comments Fwd, Bkwd cues for slower pace to further challenge balance, increased difficulty L foot behind R. SLS Details SLS Surface AirEx Comments required occasional EXTRUDER prn, CGA L ~15 secs R ~3 secs Vestibular Rehabilitation X1 Viewing Details Static target, head turns Comments Walking in hallway, 90 bpm metronome Cues for larger HT's Other Activities Easter Egg Pham Comments Visual scanning for hidden cones Requires cues for cones on R side. PT-OP-T Assessment and Plan Start: 08/17/23 17:40 Freq: Status: Active Protocol: Document 09/07/23 15:13 TS (Rec: 09/07/23 16:38 TS [id number]) Physical Therapy Assessment Goals Three Impairment Pt ambulates within six inches of L wall in hallway due to R visual deficit Detention Goal (LTG) Pt to demonstrate appropriate visual scanning during gait 80 % of the time without verbal cues in order to increase visual field and improve comfort ambulating away from left-hand wall. LTG Duration 11/15/23 Two Impairment Pt able to tolerate weeding garden for 20 minutes Detention Goal (LTG) Pt to report ability to weed garden for 45 minutes without rest break in order to demonstrate increased activity tolerance LTG Duration 11/15/23 One Impairment Pt does not have an appropriate home exercise program Short Term Goal (STG) Pt to be independent and compliant with an appropriate HEP STG Duration 09/17/23 Assessment Summary Assessment Pt continues to be challenged by shuttle balance and visual scanning ex. She improves R visual scanning when provided cues during easter pham, missed most cones in R field of vision. She demonstrates difficulty with SLS on R side compared to L, R ~3sec hold, L ~15 sec hold on foam. Physical Therapy Plan Next Visit Focus/Plan Next Note Type Treatment Note Next Visit Plan Cone easter egg pham, oculomotor exercises, dynamic balance challenges
--- NOTE | 2023-09-14 12:52 | PT.OTN ---
Current Diagnoses Unspecified mental disorder due to known physiological condition (09/14/23) Other subjective visual disturbances (09/14/23) Unsteadiness on feet (09/14/23) Other fatigue (09/14/23) Physical Therapy Treatment Note PT-OP-A Visit Information Start: 08/17/23 17:40 Freq: Status: Active Protocol: Document 09/14/23 11:17 AB (Rec: 09/14/23 12:52 AB [id number]) Out-Patient Physical Therapy Visit Information Visit Information Visit Type Treatment Note Visit Note Visit [email or web address] Access Code: [email or web address] Visit Start Time 11:18 Visit Stop Time 12:02 Visit Number 7 Number of TOP ICER Visits 4 PT-OP-B Current Condition Start: 08/17/23 17:40 Freq: Status: Active Protocol: Document 08/17/23 16:45 DCW (Rec: 08/17/23 17:55 DCW [id number]) Current Condition History of Current Condition Onset Date March Current Complaints visual loss, weakness, fatigue , and cognitive decline s/p CVA History of Current Condition Pt presents to skilled therapy secondary to 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 Pt notes left- sided weakness, fatigue, gait deficits, decreased balance, falls, and right visual field defects. Pt has been working very hard since CVA, first a long stay at [place], and then spending eight weeks in inpatient rehab. Pt admits that despite the CVA in March, she doesn't remember anything between March and May, and and things are pretty fuzzy even for a few months prior to the CVA. Pt currently living with her brother, who attends her PT eval with her. Has made great strides already, feeling much better with her gait. Reports left side is still weaker, it lags behind her right, will often have to stop to reset. Worse when she begins to fatigue or with distraction. Has been practicing taking longer strides. Also has right -sided visual field loss, mainly her peripheral, however they have been working on visual scanning both on their boat and walking through the grocery store. Treatment Goals Patient/Caregiver Goals Improve activity tolerance to be able to do more gardening/ weeding, and return to driving . PT-OP-C Subjective Start: 08/17/23 17:40 Freq: Status: Active Protocol: Document 09/14/23 11:17 AB (Rec: 09/14/23 12:52 AB [id number]) OP-PT Subjective Patient Comments Patient Comments Kimberly reports she maybe a little better to the same, comments that she had a really good session with Kiara. PT-OP-D Balance Start: 08/17/23 17:40 Freq: Status: Active Protocol: Document 08/17/23 16:45 DCW (Rec: 08/17/23 17:55 DCW [id number]) OP-PT Balance Assessment Sitting Balance Static Sitting Balance Ability Normal Dynamic Sitting Balance Ability Normal Standing Balance Static Standing Balance Ability Good Dynamic Standing Balance Ability Good Device Used None Balance Tests Single Limb Standing Single Limb- Right 8 Single Limb- Left 11 Tandem Tandem Standing 30+ bilaterally Marx Fall Scale Copyright Permission PT-OP-E Functional Tests Start: 08/17/23 17:40 Freq: Status: Active Protocol: Document 08/17/23 16:45 DCW (Rec: 08/17/23 17:55 DCW [id number]) Functional Tests 6 Minute Walk Test Distance 1189' Device Used None Comments 3.30 ft/sec PT-OP-M Strength Start: 08/17/23 17:40 Freq: Status: Active Protocol: Document 08/17/23 16:45 DCW (Rec: 08/17/23 17:55 DCW [id number]) Hip Strength Hip Manual Muscle Testing Right Flexion (L2) 4+ Good+ Abduction 4+ Good+ Adduction 4+ Good+ External Rotation 4+ Good+ Internal Rotation 4+ Good+ Left Flexion (L2) 4- Good- Abduction 4 Good Adduction 4- Good- External Rotation 4 Good Internal Rotation 4 Good Knee Strength Knee Manual Muscle Testing Right Flexion (S2) 4+ Good+ Extension (L3) 4+ Good+ Left Flexion (S2) 4 Good Extension (L3) 4 Good PT-OP-Q Treatments Start: 08/17/23 17:40 Freq: Status: Active Protocol: Document 09/14/23 11:17 AB (Rec: 09/14/23 12:52 AB [id number]) Gym Equipment Shuttle Balance Red Details normal RANJAN and stagger stance Comments with scanning, head turns and eyes closed 6 min Therapeutic Exercises Sitting Exercises seated hip abduction with band Resistance level 5 band Reps/Minutes one minute hold X 1 and X25 without hold Standing Exercises squat with band Side bilateral Resistance level 5 band Reps/Minutes 2X15 Comments repeated verbal cues for hip hinge bilateral heel raise Standing Exercise Name with UE support Reps/Minutes X20 Comments verbal cues to lower heels to floor slowly Therapeutic Activity Therapeutic Activity sit to stand Reps/Minutes X4 Comments Patient ed self tactile cues for hip hinge Neuro Re-Education Treatment Balance Activities balloon volley Details on therapad stagger to modified tandem Reps/Duration 5 min CGA mat with hurdles and objects under Details CGA Reps/Duration X6 Foam Details stagger stamce with head turns Surface Foam Equipment // bars, CGA Comments Requires cues for increased rotation to R side. [place]oca Details lateral balance challenge Surface stable Equipment // bars, SBA Reps/Duration 10 ft x3ea normal pace, Comments Does well with increased speed Tandem Details Tandem Ambulation Comments Fwd, Bkwd Verbal cues to scan for items on counter, head turns and visual scanning with fwd CGA SLS Details SLS Surface AirEx Comments CGA with visual scanning and head turns, eyes closed Other Activities Easter Egg Pham Details cones at all levels around gym Comments Visual scanning for hidden cones PT-OP-T Assessment and Plan Start: 08/17/23 17:40 Freq: Status: Active Protocol: Document 09/14/23 11:17 AB (Rec: 09/14/23 12:52 AB [id number]) Physical Therapy Assessment Goals Three Impairment Pt ambulates within six inches of L wall in hallway due to R visual deficit Long-Term Goal (LTG) Pt to demonstrate appropriate visual scanning during gait 80 % of the time without verbal cues in order to increase visual field and improve comfort ambulating away from left-hand wall. LTG Duration 11/15/23 Two Impairment Pt able to tolerate weeding garden for 20 minutes Long-Term Goal (LTG) Pt to report ability to weed garden for 45 minutes without rest break in order to demonstrate increased activity tolerance LTG Duration 11/15/23 One Impairment Pt does not have an appropriate home exercise program Short Term Goal (STG) Pt to be independent and compliant with an appropriate HEP STG Duration 09/17/23 Assessment Summary Assessment Kimberly reports having no pain end of session, increased verbal and visual cues for hip hinge with squats. Physical Therapy Plan Frequency and Duration Frequency of Treatment 2x/Week Plan of Care Start Date 08/17/23 Plan of Care End Date 11/15/23 Next Visit Focus/Plan Next Note Type Treatment Note Next Visit Plan Nick pham, oculomotor exercises, dynamic balance challenges
--- NOTE | 2023-09-19 11:09 | PT.OTN ---
Current Diagnoses Unspecified mental disorder due to known physiological condition (09/19/23) Other subjective visual disturbances (09/19/23) Unsteadiness on feet (09/19/23) Other fatigue (09/19/23) Physical Therapy Treatment Note PT-OP-A Visit Information Start: 08/17/23 17:40 Freq: Status: Active Protocol: Document 09/19/23 10:30 DCW (Rec: 09/19/23 11:09 DCW [id number]) Out-Patient Physical Therapy Visit Information Visit Information Visit Type Treatment Note Visit Note Early end due to [employer] arriving during session Visit Start Time 10:30 Visit Stop Time 11:04 Visit Number 8 Number of RN ACUTE DIALYSIS Visits 0 Evaluation Information Evaluation Date 08/17/23 PT-OP-B Current Condition Start: 08/17/23 17:40 Freq: Status: Active Protocol: Document 08/17/23 16:45 DCW (Rec: 08/17/23 17:55 DCW [id number]) Current Condition History of Current Condition Onset Date March Current Complaints visual loss, weakness, fatigue , and cognitive decline s/p CVA History of Current Condition Pt presents to skilled therapy secondary to 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 Pt notes left- sided weakness, fatigue, gait deficits, decreased balance, falls, and right visual field defects. Pt has been working very hard since CVA, first a long stay at [place], and then spending eight weeks in inpatient rehab. Pt admits that despite the CVA in March, she doesn't remember anything between March and May, and and things are pretty fuzzy even for a few months prior to the CVA. Pt currently living with her brother, who attends her PT eval with her. Has made great strides already, feeling much better with her gait. Reports left side is still weaker, it lags behind her right, will often have to stop to reset. Worse when she begins to fatigue or with distraction. Has been practicing taking longer strides. Also has right -sided visual field loss, mainly her peripheral, however they have been working on visual scanning both on their boat and walking through the grocery store. Treatment Goals Patient/Caregiver Goals Improve activity tolerance to be able to do more gardening/ weeding, and return to driving . PT-OP-C Subjective Start: 08/17/23 17:40 Freq: Status: Active Protocol: Document 09/19/23 10:30 DCW (Rec: 09/19/23 11:09 DCW [id number]) OP-PT Subjective Patient Comments Patient Comments Pt feeling good apoint improvement, notes balance and visual neglect are her two biggest lingering concerns PT-OP-D Balance Start: 08/17/23 17:40 Freq: Status: Active Protocol: Document 08/17/23 16:45 DCW (Rec: 08/17/23 17:55 DCW [place] [id number]) OP-PT Balance Assessment Sitting Balance Static Sitting Balance Ability Normal Dynamic Sitting Balance Ability Normal Standing Balance Static Standing Balance Ability Good Dynamic Standing Balance Ability Good Device Used None Balance Tests Single Limb Standing Single Limb- Right 8 Single Limb- Left 11 Tandem Tandem Standing 30+ bilaterally Marx Fall Scale Copyright Permission PT-OP-E Functional Tests Start: 08/17/23 17:40 Freq: Status: Active Protocol: Document 08/17/23 16:45 DCW (Rec: 08/17/23 17:55 DCW [place] [id number]) Functional Tests 6 Minute Walk Test Distance 1189' Device Used None Comments 3.30 ft/sec PT-OP-M Strength Start: 08/17/23 17:40 Freq: Status: Active Protocol: Document 08/17/23 16:45 DCW (Rec: 08/17/23 17:55 DCW [place] [id number]) Hip Strength Hip Manual Muscle Testing Right Flexion (L2) 4+ Good+ Abduction 4+ Good+ Adduction 4+ Good+ External Rotation 4+ Good+ Internal Rotation 4+ Good+ Left Flexion (L2) 4- Good- Abduction 4 Good Adduction 4- Good- External Rotation 4 Good Internal Rotation 4 Good Knee Strength Knee Manual Muscle Testing Right Flexion (S2) 4+ Good+ Extension (L3) 4+ Good+ Left Flexion (S2) 4 Good Extension (L3) 4 Good PT-OP-Q Treatments Start: 08/17/23 17:40 Freq: Status: Active Protocol: Document 09/19/23 10:30 DCW (Rec: 09/19/23 11:09 DCW [id number]) Gym Equipment Shuttle Balance Red Details WBOS and stagger stance Comments with scanning, head turns and eyes closed Neuro Re-Education Treatment Balance Activities Uneven Ambulation Details Hurdles Surface Uneven blue pads Vestibular Rehabilitation Visual Tracking Details Tracking of laser target Background Visual conflict board Distance From Target 5 feet Speed as tolerated Position NBOS on foam Comments Horizontal, Vertical, Diagonal Other Activities Easter Egg Pham Details cones at all levels around gym Comments Visual scanning for hidden cones PT-OP-T Assessment and Plan Start: 08/17/23 17:40 Freq: Status: Active Protocol: Document 09/19/23 10:30 DCW (Rec: 09/19/23 11:09 DCW [id number]) Physical Therapy Assessment Impairments Impairments Activity Tolerance,Functional Activities,Functional Mobility ,Gait,Strength,Visual Motor Goals Three Impairment Pt ambulates within six inches of L wall in hallway due to R visual deficit Bookkeeper Assistant Goal (LTG) Pt to demonstrate appropriate visual scanning during gait 80 % of the time without verbal cues in order to increase visual field and improve comfort ambulating away from left-hand wall. LTG Duration 11/15/23 Two Impairment Pt able to tolerate weeding garden for 20 minutes Fdc Goal (LTG) Pt to report ability to weed garden for 45 minutes without rest break in order to demonstrate increased activity tolerance LTG Duration 11/15/23 One Impairment Pt does not have an appropriate home exercise program Short Term Goal (STG) Pt to be independent and compliant with an appropriate HEP STG Duration 09/17/23 Assessment Summary Assessment Pt feeling better in regards to gait and independent function, becoming better with visual scanning, but still will occasionally completely miss seeing objects in her path. Physical Therapy Plan Frequency and Duration Frequency of Treatment 2x/Week Plan of Care Start Date 08/17/23 Plan of Care End Date 11/15/23 Therapeutic Interventions Therapeutic Interventions Balance Training,Gait Training ,Home Exercise Program,Manual Therapy,Neuromuscular Re- education,Patient/Caregiver Education,Self-Care/Home Management,Soft Tissue Mobilization,Therapeutic Activities,Therapeutic Exercises,Vestibular Rehabilitation Next Visit Focus/Plan Next Note Type Treatment Note Next Visit Plan [employer] easter egg pham, oculomotor exercises, dynamic balance challenges
--- NOTE | 2023-09-21 14:12 | PT.OTN ---
Current Diagnoses Unspecified mental disorder due to known physiological condition (09/21/23) Other subjective visual disturbances (09/21/23) Unsteadiness on feet (09/21/23) Other fatigue (09/21/23) Physical Therapy Treatment Note PT-OP-A Visit Information Start: 08/17/23 17:40 Freq: Status: Active Protocol: Document 09/21/23 08:06 AB (Rec: 09/21/23 09:01 AB [id number]) Out-Patient Physical Therapy Visit Information Visit Information Visit Type Treatment Note Visit Note [email or web address] Access Code: [email or web address] [ End ] Visit Start Time 08:16 Visit Stop Time 09:00 Visit Number 9 Number of MEDICAL RECORDS AUDITOR Visits 1 Evaluation Information Evaluation Date 08/17/23 PT-OP-B Current Condition Start: 08/17/23 17:40 Freq: Status: Active Protocol: Document 08/17/23 16:45 DCW (Rec: 08/17/23 17:55 DCW [id number]) Current Condition History of Current Condition Onset Date March Current Complaints visual loss, weakness, fatigue , and cognitive decline s/p CVA History of Current Condition Pt presents to skilled therapy secondary to 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 Pt notes left- sided weakness, fatigue, gait deficits, decreased balance, falls, and right visual field defects. Pt has been working very hard since CVA, first a long stay at [place], and then spending eight weeks in inpatient rehab. Pt admits that despite the CVA in March, she doesn't remember anything between March and May, and and things are pretty fuzzy even for a few months prior to the CVA. Pt currently living with her brother, who attends her PT eval with her. Has made great strides already, feeling much better with her gait. Reports left side is still weaker, it lags behind her right, will often have to stop to reset. Worse when she begins to fatigue or with distraction. Has been practicing taking longer strides. Also has right -sided visual field loss, mainly her peripheral, however they have been working on visual scanning both on their boat and walking through the grocery store. Treatment Goals Patient/Caregiver Goals Improve activity tolerance to be able to do more gardening/ weeding, and return to driving . PT-OP-C Subjective Start: 08/17/23 17:40 Freq: Status: Active Protocol: Document 09/21/23 08:06 AB (Rec: 09/21/23 09:01 AB [id number]) OP-PT Subjective Patient Comments Patient Comments Patient reports she is the same, feels pretty good, tires quickly. Patient reports doing her exercises. Patient reports she did some new occular exercises, comments diagonal upper right to lower left was difficult. PT-OP-D Balance Start: 08/17/23 17:40 Freq: Status: Active Protocol: Document 08/17/23 16:45 DCW (Rec: 08/17/23 17:55 DCW [id number]) OP-PT Balance Assessment Sitting Balance Static Sitting Balance Ability Normal Dynamic Sitting Balance Ability Normal Standing Balance Static Standing Balance Ability Good Dynamic Standing Balance Ability Good Device Used None Balance Tests Single Limb Standing Single Limb- Right 8 Single Limb- Left 11 Tandem Tandem Standing 30+ bilaterally Marx Fall Scale Copyright Permission PT-OP-E Functional Tests Start: 08/17/23 17:40 Freq: Status: Active Protocol: Document 08/17/23 16:45 DCW (Rec: 08/17/23 17:55 DCW [id number]) Functional Tests 6 Minute Walk Test Distance 1189' Device Used None Comments 3.30 ft/sec PT-OP-M Strength Start: 08/17/23 17:40 Freq: Status: Active Protocol: Document 08/17/23 16:45 DCW (Rec: 08/17/23 17:55 DCW [id number]) Hip Strength Hip Manual Muscle Testing Right Flexion (L2) 4+ Good+ Abduction 4+ Good+ Adduction 4+ Good+ External Rotation 4+ Good+ Internal Rotation 4+ Good+ Left Flexion (L2) 4- Good- Abduction 4 Good Adduction 4- Good- External Rotation 4 Good Internal Rotation 4 Good Knee Strength Knee Manual Muscle Testing Right Flexion (S2) 4+ Good+ Extension (L3) 4+ Good+ Left Flexion (S2) 4 Good Extension (L3) 4 Good PT-OP-Q Treatments Start: 08/17/23 17:40 Freq: Status: Active Protocol: Document 09/21/23 08:06 AB (Rec: 09/21/23 09:01 AB [id number]) Gym Equipment Shuttle Balance Red Details WBOS and stagger stance Comments with scanning, head turns and eyes closed Therapeutic Exercises Sitting Exercises seated hip abduction with band Resistance level 5 band Reps/Minutes one minute hold X 1 and X25 without hold Standing Exercises squat with band Side bilateral Resistance level 5 band Reps/Minutes 2X15 Comments repeated verbal cues for hip hinge bilateral heel raise Standing Exercise Name with UE support Reps/Minutes X20 Comments verbal cues to lower heels to floor slowly Neuro Re-Education Treatment Balance Activities balloon volley Details on therapad stagger to modified tandem Reps/Duration 3 min CGA Comments visual scanning diagonals mat with hurdles and objects under Details CGA Reps/Duration X6 Foam Details stagger stamce with head turns Surface therapads Equipment // bars, CGA Comments Requires cues for increased rotation to R side. Carioca Details lateral balance challenge Surface stable Equipment // bars, SBA Reps/Duration 10 ft x3ea normal pace, Comments with counting back by 2's and 3's Tandem Details Tandem Ambulation Comments Fwd, Bkwd Verbal cuesfor head turns and visual scanning with fwd CGA SLS Details SLS Surface AirEx Comments CGA with visual scanning and head turns, eyes closed Other Activities Easter Egg Pham Details cones at all levels around gym Comments Visual scanning for hidden cones PT-OP-T Assessment and Plan Start: 08/17/23 17:40 Freq: Status: Active Protocol: Document 09/21/23 08:06 AB (Rec: 09/21/23 09:01 AB [id number]) Physical Therapy Assessment Goals Three Impairment Pt ambulates within six inches of L wall in hallway due to R visual deficit Mechanical Repair Worker Goal (LTG) Pt to demonstrate appropriate visual scanning during gait 80 % of the time without verbal cues in order to increase visual field and improve comfort ambulating away from left-hand wall. LTG Duration 11/15/23 Two Impairment Pt able to tolerate weeding garden for 20 minutes Mechanical Repair Worker Goal (LTG) Pt to report ability to weed garden for 45 minutes without rest break in order to demonstrate increased activity tolerance LTG Duration 11/15/23 One Impairment Pt does not have an appropriate home exercise program Short Term Goal (STG) Pt to be independent and compliant with an appropriate HEP STG Duration 09/17/23 Assessment Summary Assessment Patient reports calves are sore end of session, comments this session was the easiest referring to Shuttle balance. Physical Therapy Plan Frequency and Duration Frequency of Treatment 2x/Week Plan of Care Start Date 08/17/23 Plan of Care End Date 11/15/23 Next Visit Focus/Plan Next Note Type Treatment Note Next Visit Plan Nick pham, oculomotor exercises, dynamic balance challenges
--- NOTE | 2023-09-27 11:22 | PT.OTN ---
Current Diagnoses Unspecified mental disorder due to known physiological condition (09/27/23) Other subjective visual disturbances (09/27/23) Unsteadiness on feet (09/27/23) Other fatigue (09/27/23) Physical Therapy Treatment Note PT-OP-A Visit Information Start: 08/17/23 17:40 Freq: Status: Active Protocol: Document 09/27/23 10:33 DCW (Rec: 09/27/23 11:22 DCW [id number]) Out-Patient Physical Therapy Visit Information Visit Information Visit Type Treatment Note Visit Start Time 10:33 Visit Stop Time 11:15 Visit Number 10 Number of LEAD AUDITOR Visits 0 Evaluation Information Evaluation Date 08/17/23 PT-OP-B Current Condition Start: 08/17/23 17:40 Freq: Status: Active Protocol: Document 08/17/23 16:45 DCW (Rec: 08/17/23 17:55 DCW [id number]) Current Condition History of Current Condition Onset Date March Current Complaints visual loss, weakness, fatigue , and cognitive decline s/p CVA History of Current Condition Pt presents to skilled therapy secondary to 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 Pt notes left- sided weakness, fatigue, gait deficits, decreased balance, falls, and right visual field defects. Pt has been working very hard since CVA, first a long stay at [facility], and then spending eight weeks in inpatient rehab. Pt admits that despite the CVA in March, she doesn't remember anything between March and May, and and things are pretty fuzzy even for a few months prior to the CVA. Pt currently living with her brother, who attends her PT eval with her. Has made great strides already, feeling much better with her gait. Reports left side is still weaker, it lags behind her right, will often have to stop to reset. Worse when she begins to fatigue or with distraction. Has been practicing taking longer strides. Also has right -sided visual field loss, mainly her peripheral, however they have been working on visual scanning both on their boat and walking through the grocery store. Treatment Goals Patient/Caregiver Goals Improve activity tolerance to be able to do more gardening/ weeding, and return to driving . PT-OP-C Subjective Start: 08/17/23 17:40 Freq: Status: Active Protocol: Document 09/27/23 10:33 DCW (Rec: 09/27/23 11:22 DCW [id number]) OP-PT Subjective Patient Comments Patient Comments Pt notes she was out doing yard work, no falls even with working on a hillside. PT-OP-D Balance Start: 08/17/23 17:40 Freq: Status: Active Protocol: Document 08/17/23 16:45 DCW (Rec: 08/17/23 17:55 DCW [id number]) OP-PT Balance Assessment Sitting Balance Static Sitting Balance Ability Normal Dynamic Sitting Balance Ability Normal Standing Balance Static Standing Balance Ability Good Dynamic Standing Balance Ability Good Device Used None Balance Tests Single Limb Standing Single Limb- Right 8 Single Limb- Left 11 Tandem Tandem Standing 30+ bilaterally Marx Fall Scale Copyright Permission PT-OP-E Functional Tests Start: 08/17/23 17:40 Freq: Status: Active Protocol: Document 08/17/23 16:45 DCW (Rec: 08/17/23 17:55 DCW [id number]) Functional Tests 6 Minute Walk Test Distance 1189' Device Used None Comments 3.30 ft/sec PT-OP-M Strength Start: 08/17/23 17:40 Freq: Status: Active Protocol: Document 08/17/23 16:45 DCW (Rec: 08/17/23 17:55 DCW [id number]) Hip Strength Hip Manual Muscle Testing Right Flexion (L2) 4+ Good+ Abduction 4+ Good+ Adduction 4+ Good+ External Rotation 4+ Good+ Internal Rotation 4+ Good+ Left Flexion (L2) 4- Good- Abduction 4 Good Adduction 4- Good- External Rotation 4 Good Internal Rotation 4 Good Knee Strength Knee Manual Muscle Testing Right Flexion (S2) 4+ Good+ Extension (L3) 4+ Good+ Left Flexion (S2) 4 Good Extension (L3) 4 Good PT-OP-Q Treatments Start: 08/17/23 17:40 Freq: Status: Active Protocol: Document 09/27/23 10:33 DCW (Rec: 09/27/23 11:22 DCW [id number]) Gym Equipment Shuttle Balance Red Details WBOS and lateral stance Comments with scanning, head turns and eyes closed Neuro Re-Education Treatment Balance Activities balloon volley Details on therapad stagger to modified tandem Reps/Duration 3 min CGA Comments visual scanning diagonals Foam Details stagger stamce with head turns Surface therapads Equipment // bars, CGA Comments 110 bpm metronome Tandem Details Tandem Ambulation Comments Fwd, Bkwd Vestibular Rehabilitation Bisecting lines Details Bisecting lines, clock drawing Comments 15 lines, average 0.39 cm off center Other Activities Disco Ball Details DLS, SLS on AirEx/firm PT-OP-T Assessment and Plan Start: 08/17/23 17:40 Freq: Status: Active Protocol: Document 09/27/23 10:33 DCW (Rec: 09/27/23 11:22 DCW [id number]) Physical Therapy Assessment Impairments Impairments Activity Tolerance,Functional Activities,Functional Mobility ,Gait,Strength,Visual Motor Goals Three Impairment Pt ambulates within six inches of L wall in hallway due to R visual deficit Half-Way Goal (LTG) Pt to demonstrate appropriate visual scanning during gait 80 % of the time without verbal cues in order to increase visual field and improve comfort ambulating away from left-hand wall. LTG Duration 11/15/23 Two Impairment Pt able to tolerate weeding garden for 20 minutes Half-Way Goal (LTG) Pt to report ability to weed garden for 45 minutes without rest break in order to demonstrate increased activity tolerance LTG Duration 11/15/23 One Impairment Pt does not have an appropriate home exercise program Short Term Goal (STG) Pt to be independent and compliant with an appropriate HEP STG Duration 09/17/23 Assessment Summary Assessment Pt did very well with bisecting lines, only average of 0.39 cm off center, although all misses were right of center. Biggest struggle today was balance with Disco ball. Physical Therapy Plan Frequency and Duration Frequency of Treatment 2x/Week Plan of Care Start Date 08/17/23 Plan of Care End Date 11/15/23 Therapeutic Interventions Therapeutic Interventions Balance Training,Gait Training ,Home Exercise Program,Manual Therapy,Neuromuscular Re- education,Patient/Caregiver Education,Self-Care/Home Management,Soft Tissue Mobilization,Therapeutic Activities,Therapeutic Exercises,Vestibular Rehabilitation Next Visit Focus/Plan Next Note Type Treatment Note Next Visit Plan Nick nur, oculomotor exercises, dynamic balance challenges
--- NOTE | 2023-10-11 11:15 | PT.OTN ---
Current Diagnoses Unspecified mental disorder due to known physiological condition (10/11/23) Other subjective visual disturbances (10/11/23) Unsteadiness on feet (10/11/23) Other fatigue (10/11/23) Physical Therapy Treatment Note PT-OP-A Visit Information Start: 08/17/23 17:40 Freq: Status: Active Protocol: Document 10/11/23 10:30 DCW (Rec: 10/11/23 11:15 DCW [id number]) Out-Patient Physical Therapy Visit Information Visit Information Visit Type Treatment Note Visit Start Time 10:30 Visit Stop Time 11:15 Visit Number 11 Number of GOVERNMENT DOCUMENTS LIBRARIAN Visits 0 Evaluation Information Evaluation Date 08/17/23 PT-OP-B Current Condition Start: 08/17/23 17:40 Freq: Status: Active Protocol: Document 08/17/23 16:45 DCW (Rec: 08/17/23 17:55 DCW [id number]) Current Condition History of Current Condition Onset Date March Current Complaints visual loss, weakness, fatigue , and cognitive decline s/p CVA History of Current Condition Pt presents to skilled therapy secondary to 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 Pt notes left- sided weakness, fatigue, gait deficits, decreased balance, falls, and right visual field defects. Pt has been working very hard since CVA, first a long stay at [place], and then spending eight weeks in inpatient rehab. Pt admits that despite the CVA in March, she doesn't remember anything between March and May, and and things are pretty fuzzy even for a few months prior to the CVA. Pt currently living with her brother, who attends her PT eval with her. Has made great strides already, feeling much better with her gait. Reports left side is still weaker, it lags behind her right, will often have to stop to reset. Worse when she begins to fatigue or with distraction. Has been practicing taking longer strides. Also has right -sided visual field loss, mainly her peripheral, however they have been working on visual scanning both on their boat and walking through the grocery store. Treatment Goals Patient/Caregiver Goals Improve activity tolerance to be able to do more gardening/ weeding, and return to driving . PT-OP-C Subjective Start: 08/17/23 17:40 Freq: Status: Active Protocol: Document 10/11/23 10:30 DCW (Rec: 10/11/23 11:15 DCW [id number]) OP-PT Subjective Patient Comments Patient Comments I feel like I'm progressing every day. PT-OP-D Balance Start: 08/17/23 17:40 Freq: Status: Active Protocol: Document 08/17/23 16:45 DCW (Rec: 08/17/23 17:55 DCW [id number]) OP-PT Balance Assessment Sitting Balance Static Sitting Balance Ability Normal Dynamic Sitting Balance Ability Normal Standing Balance Static Standing Balance Ability Good Dynamic Standing Balance Ability Good Device Used None Balance Tests Single Limb Standing Single Limb- Right 8 Single Limb- Left 11 Tandem Tandem Standing 30+ bilaterally Marx Fall Scale Copyright Permission PT-OP-E Functional Tests Start: 08/17/23 17:40 Freq: Status: Active Protocol: Document 08/17/23 16:45 DCW (Rec: 08/17/23 17:55 DCW [id number]) Functional Tests 6 Minute Walk Test Distance 1189' Device Used None Comments 3.30 ft/sec PT-OP-M Strength Start: 08/17/23 17:40 Freq: Status: Active Protocol: Document 08/17/23 16:45 DCW (Rec: 08/17/23 17:55 DCW [id number]) Hip Strength Hip Manual Muscle Testing Right Flexion (L2) 4+ Good+ Abduction 4+ Good+ Adduction 4+ Good+ External Rotation 4+ Good+ Internal Rotation 4+ Good+ Left Flexion (L2) 4- Good- Abduction 4 Good Adduction 4- Good- External Rotation 4 Good Internal Rotation 4 Good Knee Strength Knee Manual Muscle Testing Right Flexion (S2) 4+ Good+ Extension (L3) 4+ Good+ Left Flexion (S2) 4 Good Extension (L3) 4 Good PT-OP-Q Treatments Start: 08/17/23 17:40 Freq: Status: Active Protocol: Document 10/11/23 10:30 DCW (Rec: 10/11/23 11:15 DCW [id number]) Gym Equipment Shuttle Balance Yellow Details [place] (8) Comments Turns Squats Red Comments WBOS (EO/EC) Staggered Stance (Head Turns) Lateral Stance Neuro Re-Education Treatment Balance Activities Dynamic Gait Details Gait in Hallway Comments Head turns (90->120 bpm) Tandem Gait Retro Gait balloon volley Details on AirEx staggered Reps/Duration 3 min CGA Comments visual scanning diagonals Foam Details stagger stance with head turns Surface AirEx Equipment // bars, CGA Comments Diagonal head turns SLS Details SLS Surface Firm Comments CGA Other Activities Disco Ball Details SLS on firm PT-OP-T Assessment and Plan Start: 08/17/23 17:40 Freq: Status: Active Protocol: Document 10/11/23 10:30 DCW (Rec: 10/11/23 11:15 DCW [id number]) Physical Therapy Assessment Impairments Impairments Activity Tolerance,Functional Activities,Functional Mobility ,Gait,Strength,Visual Motor Goals Three Impairment Pt ambulates within six inches of L wall in hallway due to R visual deficit Nursing Home Goal (LTG) Pt to demonstrate appropriate visual scanning during gait 80 % of the time without verbal cues in order to increase visual field and improve comfort ambulating away from left-hand wall. LTG Duration 11/15/23 Two Impairment Pt able to tolerate weeding garden for 20 minutes Nursing Home Goal (LTG) Pt to report ability to weed garden for 45 minutes without rest break in order to demonstrate increased activity tolerance LTG Duration 11/15/23 One Impairment Pt does not have an appropriate home exercise program Short Term Goal (STG) Pt to be independent and compliant with an appropriate HEP STG Duration 09/17/23 Assessment Summary Assessment Pt showing improvement with visual walters, doing much better visually tracking targets and balloon, still struggling more with SLS and uneven surfaces. Physical Therapy Plan Frequency and Duration Frequency of Treatment 2x/Week Plan of Care Start Date 08/17/23 Plan of Care End Date 11/15/23 Therapeutic Interventions Therapeutic Interventions Balance Training,Gait Training ,Home Exercise Program,Manual Therapy,Neuromuscular Re- education,Patient/Caregiver Education,Self-Care/Home Management,Soft Tissue Mobilization,Therapeutic Activities,Therapeutic Exercises,Vestibular Rehabilitation Next Visit Focus/Plan Next Note Type Treatment Note Next Visit Plan Nick nur, oculomotor exercises, dynamic balance challenges
--- NOTE | 2023-10-14 12:55 | PT.OTN ---
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 Pt notes left- sided weakness, fatigue, gait deficits, decreased balance, falls, and right visual field defects. Pt has been working very hard since CVA, first a long stay at [place], and then spending eight weeks in inpatient rehab. Pt admits that despite the CVA in March, she doesn't remember anything between March and May, and and things are pretty fuzzy even for a few months prior to the CVA. Pt currently living with her brother, who attends her PT eval with her. Has made great strides already, feeling much better with her gait. Reports left side is still weaker, it lags behind her right, will often have to stop to reset. Worse when she begins to fatigue or with distraction. Has been practicing taking longer strides. Also has right -sided visual field loss, mainly her peripheral, however they have been working on visual scanning both on their boat and walking through the grocery store. Treatment Goals Patient/Caregiver Goals Improve activity tolerance to be able to do more gardening/ weeding, and return to driving . PT-OP-C Subjective Start: 08/17/23 17:40 Freq: Status: Active Protocol: Document 10/14/23 08:55 AB (Rec: 10/14/23 12:55 AB [id number]) OP-PT Subjective Patient Comments Patient Comments Patient reports she is getting better with balancing, but feels she is not up to par. Patient reports she had difficulty wheeling wheelbarrel on uneven ground. PT-OP-D Balance Start: 08/17/23 17:40 Freq: Status: Active Protocol: Document 08/17/23 16:45 DCW (Rec: 08/17/23 17:55 DCW [id number]) OP-PT Balance Assessment Sitting Balance Static Sitting Balance Ability Normal Dynamic Sitting Balance Ability Normal Standing Balance Static Standing Balance Ability Good Dynamic Standing Balance Ability Good Device Used None Balance Tests Single Limb Standing Single Limb- Right 8 Single Limb- Left 11 Tandem Tandem Standing 30+ bilaterally Marx Fall Scale Copyright Permission PT-OP-E Functional Tests Start: 08/17/23 17:40 Freq: Status: Active Protocol: Document 08/17/23 16:45 DCW (Rec: 08/17/23 17:55 DCW [id number]) Functional Tests 6 Minute Walk Test Distance 1189' Device Used None Comments 3.30 ft/sec PT-OP-M Strength Start: 08/17/23 17:40 Freq: Status: Active Protocol: Document 08/17/23 16:45 DCW (Rec: 08/17/23 17:55 DCW [id number]) Hip Strength Hip Manual Muscle Testing Right Flexion (L2) 4+ Good+ Abduction 4+ Good+ Adduction 4+ Good+ External Rotation 4+ Good+ Internal Rotation 4+ Good+ Left Flexion (L2) 4- Good- Abduction 4 Good Adduction 4- Good- External Rotation 4 Good Internal Rotation 4 Good Knee Strength Knee Manual Muscle Testing Right Flexion (S2) 4+ Good+ Extension (L3) 4+ Good+ Left Flexion (S2) 4 Good Extension (L3) 4 Good PT-OP-Q Treatments Start: 08/17/23 17:40 Freq: Status: Active Protocol: Document 10/14/23 08:55 AB (Rec: 10/14/23 12:55 AB [id number]) Gym Equipment Shuttle Balance Red Comments WBOS Staggered Stance (Head Turns), visual scanning CGA Sport Cord blue Exercise Details fwd, retro, lateral, carioca Cord/Resistance blue Reps/Duration X4 to 6 reps each ex Comments with visual scanning Therapeutic Exercises Sitting Exercises seated hip abduction with band Resistance level 5 band Reps/Minutes one minute hold X 1 and X25 without hold Standing Exercises squat with band Side bilateral Resistance level 5 band Reps/Minutes 2X10 Comments pt ed self tactiel cues for hip hinge Neuro Re-Education Treatment Balance Activities balloon volley Details on [employer] tandem Reps/Duration 2 min CGA to very minimal assist mat with hurdles and objects under Details CGA Reps/Duration X8 Comments carrying cone with ball X 4, with visual scanning Tandem Details Tandem Ambulation Comments Fwd, Bkwd with visual scanning PT-OP-T Assessment and Plan Start: 08/17/23 17:40 Freq: Status: Active Protocol: Document 10/14/23 08:55 AB (Rec: 10/14/23 12:55 AB [id number]) Physical Therapy Assessment Goals Three Impairment Pt ambulates within six inches of L wall in hallway due to R visual deficit Alf Goal (LTG) Pt to demonstrate appropriate visual scanning during gait 80 % of the time without verbal cues in order to increase visual field and improve comfort ambulating away from left-hand wall. LTG Duration 11/15/23 Two Impairment Pt able to tolerate weeding garden for 20 minutes Alf Goal (LTG) Pt to report ability to weed garden for 45 minutes without rest break in order to demonstrate increased activity tolerance LTG Duration 11/15/23 One Impairment Pt does not have an appropriate home exercise program Short Term Goal (STG) Pt to be independent and compliant with an appropriate HEP STG Duration 09/17/23 Assessment Summary Assessment Visual challenges continue to impact balance, but patient able to perform increasingly difficulty balance exercises with visual challenges with occasional very minimal assist , ie during tandem on foam balloon volleyball. Physical Therapy Plan Frequency and Duration Frequency of Treatment 2x/Week Plan of Care Start Date 08/17/23 Plan of Care End Date 11/15/23 Next Visit Focus/Plan Next Note Type Progress Note Next Visit Plan Nick nur, oculomotor exercises, dynamic balance challenges
--- NOTE | 2023-10-18 16:17 | PT.OTN ---
Current Diagnoses Unspecified mental disorder due to known physiological condition (10/18/23) Other subjective visual disturbances (10/18/23) Unsteadiness on feet (10/18/23) Other fatigue (10/18/23) Physical Therapy Treatment Note PT-OP-A Visit Information Start: 08/17/23 17:40 Freq: Status: Active Protocol: Document 10/18/23 12:46 AB (Rec: 10/18/23 16:17 AB [id number]) Out-Patient Physical Therapy Visit Information Visit Information Visit Type Treatment Note Visit Note [email or web address] Access Code: [email or web address] [ End ] Visit Start Time 13:49 Visit Stop Time 14:30 Visit Number 13 Number of BOAT HAND Visits 2 Evaluation Information Evaluation Date 08/17/23 PT-OP-B Current Condition Start: 08/17/23 17:40 Freq: Status: Active Protocol: Document 08/17/23 16:45 DCW (Rec: 08/17/23 17:55 DCW [id number]) Current Condition History of Current Condition Onset Date March Current Complaints visual loss, weakness, fatigue , and cognitive decline s/p CVA History of Current Condition Pt presents to skilled therapy secondary to 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 Pt notes left- sided weakness, fatigue, gait deficits, decreased balance, falls, and right visual field defects. Pt has been working very hard since CVA, first a long stay at [place], and then spending eight weeks in inpatient rehab. Pt admits that despite the CVA in March, she doesn't remember anything between March and May, and and things are pretty fuzzy even for a few months prior to the CVA. Pt currently living with her brother, who attends her PT eval with her. Has made great strides already, feeling much better with her gait. Reports left side is still weaker, it lags behind her right, will often have to stop to reset. Worse when she begins to fatigue or with distraction. Has been practicing taking longer strides. Also has right -sided visual field loss, mainly her peripheral, however they have been working on visual scanning both on their boat and walking through the grocery store. Treatment Goals Patient/Caregiver Goals Improve activity tolerance to be able to do more gardening/ weeding, and return to driving . PT-OP-C Subjective Start: 08/17/23 17:40 Freq: Status: Active Protocol: Document 10/18/23 12:46 AB (Rec: 10/18/23 16:17 AB [id number]) OP-PT Subjective Patient Comments Patient Comments Patient reports balance continues to approve, but avoiding people in crowds is difficulty. PT-OP-D Balance Start: 08/17/23 17:40 Freq: Status: Active Protocol: Document 08/17/23 16:45 DCW (Rec: 08/17/23 17:55 DCW [id number]) OP-PT Balance Assessment Sitting Balance Static Sitting Balance Ability Normal Dynamic Sitting Balance Ability Normal Standing Balance Static Standing Balance Ability Good Dynamic Standing Balance Ability Good Device Used None Balance Tests Single Limb Standing Single Limb- Right 8 Single Limb- Left 11 Tandem Tandem Standing 30+ bilaterally Marx Fall Scale Copyright Permission PT-OP-E Functional Tests Start: 08/17/23 17:40 Freq: Status: Active Protocol: Document 08/17/23 16:45 DCW (Rec: 08/17/23 17:55 DCW [id number]) Functional Tests 6 Minute Walk Test Distance 1189' Device Used None Comments 3.30 ft/sec PT-OP-M Strength Start: 08/17/23 17:40 Freq: Status: Active Protocol: Document 08/17/23 16:45 DCW (Rec: 08/17/23 17:55 DCW [id number]) Hip Strength Hip Manual Muscle Testing Right Flexion (L2) 4+ Good+ Abduction 4+ Good+ Adduction 4+ Good+ External Rotation 4+ Good+ Internal Rotation 4+ Good+ Left Flexion (L2) 4- Good- Abduction 4 Good Adduction 4- Good- External Rotation 4 Good Internal Rotation 4 Good Knee Strength Knee Manual Muscle Testing Right Flexion (S2) 4+ Good+ Extension (L3) 4+ Good+ Left Flexion (S2) 4 Good Extension (L3) 4 Good PT-OP-Q Treatments Start: 08/17/23 17:40 Freq: Status: Active Protocol: Document 10/18/23 12:46 AB (Rec: 10/18/23 16:17 AB [id number]) Gym Equipment Shuttle Balance Red Comments WBOS Staggered Stance (Head Turns), visual scanning CGA Therapeutic Exercises Sitting Exercises seated hip abduction with band Resistance level 5 band Reps/Minutes one minute hold X 1 and X25 without hold Standing Exercises squat with band Side bilateral Resistance level 5 band Reps/Minutes X15 X 2 Comments pt ed self tactiel cues for hip hinge bilateral heel raise Standing Exercise Name with UE support Reps/Minutes X20 Comments verbal cues to lower heels to floor slowly Neuro Re-Education Treatment Balance Activities kick ball Details Around obsticals, and stepping around obsticals Equipment skeleton, stacks of pads, cones Comments CGA to close supervision balloon volley Details with side stepping green sport gord Comments CGA mat with hurdles and objects under Details CGA Reps/Duration X8 Comments carrying cone with ball X 4, with visual scanning, also retrieving cones from varying heights Tandem Details Tandem Ambulation Surface cga Reps/Duration X6 Comments Fwd, with visual scanning, head turns with eys on target PT-OP-T Assessment and Plan Start: 08/17/23 17:40 Freq: Status: Active Protocol: Document 10/18/23 12:46 AB (Rec: 10/18/23 16:17 AB [id number]) Physical Therapy Assessment Goals Three Impairment Pt ambulates within six inches of L wall in hallway due to R visual deficit Fpc Goal (LTG) Pt to demonstrate appropriate visual scanning during gait 80 % of the time without verbal cues in order to increase visual field and improve comfort ambulating away from left-hand wall. LTG Duration 11/15/23 Two Impairment Pt able to tolerate weeding garden for 20 minutes Parakeet Raiser Goal (LTG) Pt to report ability to weed garden for 45 minutes without rest break in order to demonstrate increased activity tolerance LTG Duration 11/15/23 One Impairment Pt does not have an appropriate home exercise program Short Term Goal (STG) Pt to be independent and compliant with an appropriate HEP STG Duration 09/17/23 Assessment Summary Assessment Patient with increased difficulty navigating christoph when having to step between skeleton and a pile of objects to kick ball to mimic navigating people in a crowd, no LOB throughout and was able to progress to supervision with this activity. Physical Therapy Plan Frequency and Duration Frequency of Treatment 2x/Week Plan of Care Start Date 08/17/23 Plan of Care End Date 11/15/23 Next Visit Focus/Plan Next Note Type Treatment Note Next Visit Plan [facility] easter egg nur, oculomotor exercises, dynamic balance challenges
--- NOTE | 2023-10-28 16:42 | PT.OTN ---
Current Diagnoses Unspecified mental disorder due to known physiological condition (10/28/23) Other subjective visual disturbances (10/28/23) Unsteadiness on feet (10/28/23) Other fatigue (10/28/23) Physical Therapy Treatment Note PT-OP-A Visit Information Start: 08/17/23 17:40 Freq: Status: Active Protocol: Document 10/28/23 12:57 AB (Rec: 10/28/23 14:33 AB [id number]) Out-Patient Physical Therapy Visit Information Visit Information Visit Type Treatment Note Visit Note [email or web address] Access Code: [email or web address] [ End ] Visit Start Time 13:02 Visit Stop Time 13:46 Visit Number 14 Number of PUMP SERVICER HELPER Visits 3 Evaluation Information Evaluation Date 08/17/23 PT-OP-B Current Condition Start: 08/17/23 17:40 Freq: Status: Active Protocol: Document 08/17/23 16:45 DCW (Rec: 08/17/23 17:55 DCW [id number]) Current Condition History of Current Condition Onset Date March Current Complaints visual loss, weakness, fatigue , and cognitive decline s/p CVA History of Current Condition Pt presents to skilled therapy secondary to 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 Pt notes left- sided weakness, fatigue, gait deficits, decreased balance, falls, and right visual field defects. Pt has been working very hard since CVA, first a long stay at [place], and then spending eight weeks in inpatient rehab. Pt admits that despite the CVA in March, she doesn't remember anything between March and May, and and things are pretty fuzzy even for a few months prior to the CVA. Pt currently living with her brother, who attends her PT eval with her. Has made great strides already, feeling much better with her gait. Reports left side is still weaker, it lags behind her right, will often have to stop to reset. Worse when she begins to fatigue or with distraction. Has been practicing taking longer strides. Also has right -sided visual field loss, mainly her peripheral, however they have been working on visual scanning both on their boat and walking through the grocery store. Treatment Goals Patient/Caregiver Goals Improve activity tolerance to be able to do more gardening/ weeding, and return to driving . PT-OP-C Subjective Start: 08/17/23 17:40 Freq: Status: Active Protocol: Document 10/28/23 12:57 AB (Rec: 10/28/23 14:33 AB [id number]) OP-PT Subjective Patient Comments Patient Comments Patient reports she is improving, scanning when out on walks. Patient reports she hasn't been in any crowds, so cannot tell if that is any better. Patient reports low back kills her in the morning, comments she tosses and turns at night. Patient reports no back pain start of session. PT-OP-D Balance Start: 08/17/23 17:40 Freq: Status: Active Protocol: Document 08/17/23 16:45 DCW (Rec: 08/17/23 17:55 DCW [id number]) OP-PT Balance Assessment Sitting Balance Static Sitting Balance Ability Normal Dynamic Sitting Balance Ability Normal Standing Balance Static Standing Balance Ability Good Dynamic Standing Balance Ability Good Device Used None Balance Tests Single Limb Standing Single Limb- Right 8 Single Limb- Left 11 Tandem Tandem Standing 30+ bilaterally Marx Fall Scale Copyright Permission PT-OP-E Functional Tests Start: 08/17/23 17:40 Freq: Status: Active Protocol: Document 08/17/23 16:45 DCW (Rec: 08/17/23 17:55 DCW [id number]) Functional Tests 6 Minute Walk Test Distance 1189' Device Used None Comments 3.30 ft/sec PT-OP-M Strength Start: 08/17/23 17:40 Freq: Status: Active Protocol: Document 08/17/23 16:45 DCW (Rec: 08/17/23 17:55 DCW [id number]) Hip Strength Hip Manual Muscle Testing Right Flexion (L2) 4+ Good+ Abduction 4+ Good+ Adduction 4+ Good+ External Rotation 4+ Good+ Internal Rotation 4+ Good+ Left Flexion (L2) 4- Good- Abduction 4 Good Adduction 4- Good- External Rotation 4 Good Internal Rotation 4 Good Knee Strength Knee Manual Muscle Testing Right Flexion (S2) 4+ Good+ Extension (L3) 4+ Good+ Left Flexion (S2) 4 Good Extension (L3) 4 Good PT-OP-Q Treatments Start: 08/17/23 17:40 Freq: Status: Active Protocol: Document 10/28/23 12:57 AB (Rec: 10/28/23 14:33 AB [id number]) Gym Equipment Shuttle Balance Red Comments WBOS Staggered Stance (Head Turns), visual scanning CGA Therapeutic Exercises Sitting Exercises seated hip abduction with band Side bilateral Resistance level 5 band Reps/Minutes one minute hold X 1 and X15 X 2without hold Standing Exercises squat with band Side bilateral Resistance level 5 band Reps/Minutes X15 X 2 Comments monitored for pain Therapeutic Activity Therapeutic Activity out door ambulation Name without device Comments on grass, inclines, declines around parked cars, with visual scanning turns and for ~30 sec eyes closed with CGA on decline. Neuro Re-Education Treatment Balance Activities step up Details 1. taps 2 step up Surface 4 inch step/ foam Comments diagonal scanning down to left hurdles Reps/Duration 10 feet X 6 Comments diagonal scanning down to left Tandem Details Tandem Ambulation Surface cga Reps/Duration X6 Comments Fwd, with visual scanning, head turns with eyes on target, diagonal scan Vestibular Rehabilitation pencil push up Reps/Duration one minute PT-OP-T Assessment and Plan Start: 08/17/23 17:40 Freq: Status: Active Protocol: Document 10/28/23 12:57 AB (Rec: 10/28/23 14:33 AB [id number]) Physical Therapy Assessment Goals Three Impairment Pt ambulates within six inches of L wall in hallway due to R visual deficit Assisted Goal (LTG) Pt to demonstrate appropriate visual scanning during gait 80 % of the time without verbal cues in order to increase visual field and improve comfort ambulating away from left-hand wall. LTG Duration 11/15/23 Two Impairment Pt able to tolerate weeding garden for 20 minutes Assisted Goal (LTG) Pt to report ability to weed garden for 45 minutes without rest break in order to demonstrate increased activity tolerance LTG Duration 11/15/23 One Impairment Pt does not have an appropriate home exercise program Short Term Goal (STG) Pt to be independent and compliant with an appropriate HEP STG Duration 09/17/23 Assessment Summary Assessment No complaints of pain throughout session, SLS 15+ sec left and right LE without UE use with minimal sway during head turns and visual scanning. Physical Therapy Plan Frequency and Duration Frequency of Treatment 2x/Week Plan of Care Start Date 08/17/23 Plan of Care End Date 11/15/23 Next Visit Focus/Plan Next Note Type Treatment Note Next Visit Plan Nick nur, oculomotor exercises, dynamic balance challenges
--- NOTE | 2023-10-31 12:41 | PT.OTN ---
Current Diagnoses Unspecified mental disorder due to known physiological condition (10/31/23) Other subjective visual disturbances (10/31/23) Unsteadiness on feet (10/31/23) Other fatigue (10/31/23) Physical Therapy Treatment Note PT-OP-A Visit Information Start: 08/17/23 17:40 Freq: Status: Active Protocol: Document 10/31/23 12:00 DCW (Rec: 10/31/23 12:04 DCW [id number]) Out-Patient Physical Therapy Visit Information Visit Information Visit Type Treatment Note Visit Start Time 12:00 Visit Stop Time 12:45 Visit Number 15 Number of WINDOW GLASS INSTALLER Visits 0 Evaluation Information Evaluation Date 08/17/23 PT-OP-B Current Condition Start: 08/17/23 17:40 Freq: Status: Active Protocol: Document 08/17/23 16:45 DCW (Rec: 08/17/23 17:55 DCW [id number]) Current Condition History of Current Condition Onset Date March Current Complaints visual loss, weakness, fatigue , and cognitive decline s/p CVA History of Current Condition Pt presents to skilled therapy secondary to 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 Pt notes left- sided weakness, fatigue, gait deficits, decreased balance, falls, and right visual field defects. Pt has been working very hard since CVA, first a long stay at [facility], and then spending eight weeks in inpatient rehab. Pt admits that despite the CVA in March, she doesn't remember anything between March and May, and and things are pretty fuzzy even for a few months prior to the CVA. Pt currently living with her brother, who attends her PT eval with her. Has made great strides already, feeling much better with her gait. Reports left side is still weaker, it lags behind her right, will often have to stop to reset. Worse when she begins to fatigue or with distraction. Has been practicing taking longer strides. Also has right -sided visual field loss, mainly her peripheral, however they have been working on visual scanning both on their boat and walking through the grocery store. Treatment Goals Patient/Caregiver Goals Improve activity tolerance to be able to do more gardening/ weeding, and return to driving . PT-OP-C Subjective Start: 08/17/23 17:40 Freq: Status: Active Protocol: Document 10/31/23 12:00 DCW (Rec: 10/31/23 12:04 DCW [id number]) OP-PT Subjective Patient Comments Patient Comments Pt reports biggest onging complaint is getting my leg to go where I want it to. Has done well pushing a shopping cart, I didn't run into anyone. Still stiff waking up in the morning PT-OP-D Balance Start: 08/17/23 17:40 Freq: Status: Active Protocol: Document 10/31/23 12:00 DCW (Rec: 10/31/23 12:25 DCW [id number]) Balance Tests Single Limb Standing Single Limb- Right 17 Single Limb- Left 19 PT-OP-E Functional Tests Start: 08/17/23 17:40 Freq: Status: Active Protocol: Document 10/31/23 12:00 DCW (Rec: 10/31/23 12:25 DCW [id number]) Functional Tests Functional Gait Assessment Score 29/30 PT-OP-M Strength Start: 08/17/23 17:40 Freq: Status: Active Protocol: Document 10/31/23 12:00 DCW (Rec: 10/31/23 12:25 DCW [id number]) Hip Strength Hip Manual Muscle Testing Right Flexion (L2) 5 Normal Abduction 5 Normal Adduction 5 Normal External Rotation 5 Normal Internal Rotation 5 Normal Left Flexion (L2) 4+ Good+ Abduction 5 Normal Adduction 5 Normal External Rotation 5 Normal Internal Rotation 5 Normal Knee Strength Knee Manual Muscle Testing Right Flexion (S2) 5 Normal Extension (L3) 5 Normal Left Flexion (S2) 5 Normal Extension (L3) 5 Normal PT-OP-Q Treatments Start: 08/17/23 17:40 Freq: Status: Active Protocol: Document 10/31/23 12:00 DCW (Rec: 10/31/23 12:41 DCW [id number]) Neuro Re-Education Treatment Other Activities Crowd Management Comments Ambulating through cones without knocking down Easter Egg Pham Comments Picking up correct color cones PT-OP-T Assessment and Plan Start: 08/17/23 17:40 Freq: Status: Active Protocol: Document 10/31/23 12:00 DCW (Rec: 10/31/23 12:41 DCW [id number]) Physical Therapy Assessment Impairments Impairments Activity Tolerance,Functional Activities,Functional Mobility ,Gait,Strength,Visual Motor Goals Three Impairment Pt ambulates within six inches of L wall in hallway due to R visual deficit Halfway Goal (LTG) Pt to demonstrate appropriate visual scanning during gait 80 % of the time without verbal cues in order to increase visual field and improve comfort ambulating away from left-hand wall. LTG Duration 11/15/23 Two Impairment Pt able to tolerate weeding garden for 20 minutes Labor Contractor Goal (LTG) Pt to report ability to weed garden for 45 minutes without rest break in order to demonstrate increased activity tolerance LTG Duration 11/15/23 One Impairment Pt does not have an appropriate home exercise program Short Term Goal (STG) Pt to be independent and compliant with an appropriate HEP STG Duration 09/17/23 Assessment Summary Assessment Pt doing very well at this point. FGA score 29/30, pt has doubled SLS time on both feet . Able to visually track without difficulty, demonstrated equal peripheral vision bilaterally. Pt will likely be appropriate to discharge following end of current POC. Physical Therapy Plan Frequency and Duration Frequency of Treatment 2x/Week Plan of Care Start Date 08/17/23 Plan of Care End Date 11/15/23 Therapeutic Interventions Therapeutic Interventions Balance Training,Gait Training ,Home Exercise Program,Manual Therapy,Neuromuscular Re- education,Patient/Caregiver Education,Self-Care/Home Management,Soft Tissue Mobilization,Therapeutic Activities,Therapeutic Exercises,Vestibular Rehabilitation Next Visit Focus/Plan Next Note Type Treatment Note Next Visit Plan Nick pham, oculomotor exercises, dynamic balance challenges
--- NOTE | 2023-11-10 10:29 | PT.OTN ---
Current Diagnoses Unspecified mental disorder due to known physiological condition (11/10/23) Other subjective visual disturbances (11/10/23) Unsteadiness on feet (11/10/23) Other fatigue (11/10/23) Physical Therapy Treatment Note PT-OP-A Visit Information Start: 08/17/23 17:40 Freq: Status: Active Protocol: Document 11/10/23 09:45 DCW (Rec: 11/10/23 10:29 DCW [id number]) Out-Patient Physical Therapy Visit Information Visit Information Visit Type Treatment Note Visit Start Time 09:45 Visit Stop Time 10:30 Visit Number 16 Number of DIRECTOR PRODUCT Visits 0 Evaluation Information Evaluation Date 08/17/23 PT-OP-B Current Condition Start: 08/17/23 17:40 Freq: Status: Active Protocol: Document 08/17/23 16:45 DCW (Rec: 08/17/23 17:55 DCW [id number]) Current Condition History of Current Condition Onset Date March Current Complaints visual loss, weakness, fatigue , and cognitive decline s/p CVA History of Current Condition Pt presents to skilled therapy secondary to 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 Pt notes left- sided weakness, fatigue, gait deficits, decreased balance, falls, and right visual field defects. Pt has been working very hard since CVA, first a long stay at [facility], and then spending eight weeks in inpatient rehab. Pt admits that despite the CVA in March, she doesn't remember anything between March and May, and and things are pretty fuzzy even for a few months prior to the CVA. Pt currently living with her brother, who attends her PT eval with her. Has made great strides already, feeling much better with her gait. Reports left side is still weaker, it lags behind her right, will often have to stop to reset. Worse when she begins to fatigue or with distraction. Has been practicing taking longer strides. Also has right -sided visual field loss, mainly her peripheral, however they have been working on visual scanning both on their boat and walking through the grocery store. Treatment Goals Patient/Caregiver Goals Improve activity tolerance to be able to do more gardening/ weeding, and return to driving . PT-OP-C Subjective Start: 08/17/23 17:40 Freq: Status: Active Protocol: Document 11/10/23 09:45 DCW (Rec: 11/10/23 10:29 DCW [id number]) OP-PT Subjective Patient Comments Patient Comments Pt feeling good about her recovery, has a lot of good tools I can use, looked into joining a gym. PT-OP-D Balance Start: 08/17/23 17:40 Freq: Status: Active Protocol: Document 10/31/23 12:00 DCW (Rec: 10/31/23 12:25 DCW [id number]) Balance Tests Single Limb Standing Single Limb- Right 17 Single Limb- Left 19 PT-OP-E Functional Tests Start: 08/17/23 17:40 Freq: Status: Active Protocol: Document 10/31/23 12:00 DCW (Rec: 10/31/23 12:25 DCW [id number]) Functional Tests Functional Gait Assessment Score 2930 PT-OP-M Strength Start: 08/17/23 17:40 Freq: Status: Active Protocol: Document 10/31/23 12:00 DCW (Rec: 10/31/23 12:25 DCW [id number]) Hip Strength Hip Manual Muscle Testing Right Flexion (L2) 5 Normal Abduction 5 Normal Adduction 5 Normal External Rotation 5 Normal Internal Rotation 5 Normal Left Flexion (L2) 4+ Good+ Abduction 5 Normal Adduction 5 Normal External Rotation 5 Normal Internal Rotation 5 Normal Knee Strength Knee Manual Muscle Testing Right Flexion (S2) 5 Normal Extension (L3) 5 Normal Left Flexion (S2) 5 Normal Extension (L3) 5 Normal PT-OP-Q Treatments Start: 08/17/23 17:40 Freq: Status: Active Protocol: Document 11/10/23 09:45 DCW (Rec: 11/10/23 10:29 DCW [id number]) Gym Equipment Shuttle Balance Red Comments WBOS /c ball toss Staggered Lateral stance /c head turns Neuro Re-Education Treatment Balance Activities Dynamic Gait Details Gait in Hallway Comments Head turns (120 bpm) Tandem Gait Retro Gait balloon volley Details Balloon Volley Surface Staggered stance on AirEx SLS Details SLS Surface Firm, AirEx Other Activities Easter Egg Pham Details cones at all levels around gym PT-OP-T Assessment and Plan Start: 08/17/23 17:40 Freq: Status: Active Protocol: Document 11/10/23 09:45 DCW (Rec: 11/10/23 10:29 DCW [id number]) Physical Therapy Assessment Impairments Impairments Activity Tolerance,Functional Activities,Functional Mobility ,Gait,Strength,Visual Motor Goals Three Impairment Pt ambulates within six inches of L wall in hallway due to R visual deficit Bolt Maker Goal (LTG) Pt to demonstrate appropriate visual scanning during gait 80 % of the time without verbal cues in order to increase visual field and improve comfort ambulating away from left-hand wall. LTG Duration Met Two Impairment Pt able to tolerate weeding garden for 20 minutes Bolt Maker Goal (LTG) Pt to report ability to weed garden for 45 minutes without rest break in order to demonstrate increased activity tolerance LTG Duration 11/15/23 One Impairment Pt does not have an appropriate home exercise program Short Term Goal (STG) Pt to be independent and compliant with an appropriate HEP STG Duration 09/17/23 Assessment Summary Assessment Pt doing very well, no further indication of visual deficits during gait. Pt plans to discharge to independent [facility] following next visit. Physical Therapy Plan Frequency and Duration Frequency of Treatment 2x/Week Plan of Care Start Date 08/17/23 Plan of Care End Date 11/15/23 Therapeutic Interventions Therapeutic Interventions Balance Training,Gait Training ,Home Exercise Program,Manual Therapy,Neuromuscular Re- education,Patient/Caregiver Education,Self-Care/Home Management,Soft Tissue Mobilization,Therapeutic Activities,Therapeutic Exercises,Vestibular Rehabilitation Next Visit Focus/Plan Next Note Type Treatment Note Next Visit Plan Nick pham, oculomotor exercises, dynamic balance challenges
--- NOTE | 2023-11-15 11:46 | PT.OTN ---
Current Diagnoses Unspecified mental disorder due to known physiological condition (11/15/23) Other subjective visual disturbances (11/15/23) Unsteadiness on feet (11/15/23) Other fatigue (11/15/23) Physical Therapy Treatment Note PT-OP-A Visit Information Start: 08/17/23 17:40 Freq: Status: Active Protocol: Document 11/15/23 08:03 AB (Rec: 11/15/23 11:46 AB [id number]) Out-Patient Physical Therapy Visit Information Visit Information Visit Type Treatment Note Visit Note [email or web address] Access Code: [email or web address] [ End ] Visit Start Time 08:16 Visit Stop Time 08:59 Visit Number 17 Number of SPECIAL EFFECTS DESIGNER Visits 1 Evaluation Information Evaluation Date 08/17/23 PT-OP-B Current Condition Start: 08/17/23 17:40 Freq: Status: Active Protocol: Document 08/17/23 16:45 DCW (Rec: 08/17/23 17:55 DCW [id number]) Current Condition History of Current Condition Onset Date March Current Complaints visual loss, weakness, fatigue , and cognitive decline s/p CVA History of Current Condition Pt presents to skilled therapy secondary to 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 Pt notes left- sided weakness, fatigue, gait deficits, decreased balance, falls, and right visual field defects. Pt has been working very hard since CVA, first a long stay at [facility], and then spending eight weeks in inpatient rehab. Pt admits that despite the CVA in March, she doesn't remember anything between March and May, and and things are pretty fuzzy even for a few months prior to the CVA. Pt currently living with her brother, who attends her PT eval with her. Has made great strides already, feeling much better with her gait. Reports left side is still weaker, it lags behind her right, will often have to stop to reset. Worse when she begins to fatigue or with distraction. Has been practicing taking longer strides. Also has right -sided visual field loss, mainly her peripheral, however they have been working on visual scanning both on their boat and walking through the grocery store. Treatment Goals Patient/Caregiver Goals Improve activity tolerance to be able to do more gardening/ weeding, and return to driving . PT-OP-C Subjective Start: 08/17/23 17:40 Freq: Status: Active Protocol: Document 11/15/23 08:03 AB (Rec: 11/15/23 11:46 AB [id number]) OP-PT Subjective Patient Comments Patient Comments Patient reports she hasn't joined gym, is checking them out. PT-OP-D Balance Start: 08/17/23 17:40 Freq: Status: Active Protocol: Document 10/31/23 12:00 DCW (Rec: 10/31/23 12:25 DCW [id number]) Balance Tests Single Limb Standing Single Limb- Right 17 Single Limb- Left 19 PT-OP-E Functional Tests Start: 08/17/23 17:40 Freq: Status: Active Protocol: Document 10/31/23 12:00 DCW (Rec: 10/31/23 12:25 DCW [id number]) Functional Tests Functional Gait Assessment Score 29/30 PT-OP-M Strength Start: 08/17/23 17:40 Freq: Status: Active Protocol: Document 10/31/23 12:00 DCW (Rec: 10/31/23 12:25 DCW [id number]) Hip Strength Hip Manual Muscle Testing Right Flexion (L2) 5 Normal Abduction 5 Normal Adduction 5 Normal External Rotation 5 Normal Internal Rotation 5 Normal Left Flexion (L2) 4+ Good+ Abduction 5 Normal Adduction 5 Normal External Rotation 5 Normal Internal Rotation 5 Normal Knee Strength Knee Manual Muscle Testing Right Flexion (S2) 5 Normal Extension (L3) 5 Normal Left Flexion (S2) 5 Normal Extension (L3) 5 Normal PT-OP-Q Treatments Start: 08/17/23 17:40 Freq: Status: Active Protocol: Document 11/15/23 08:03 AB (Rec: 11/15/23 11:46 AB [id number]) Gym Equipment Shuttle Balance Red Comments WBOS /c ball toss Staggered Lateral stance /c head turns mini squats X10 CGA Therapeutic Exercises Sidelying Exercises sidelying hip abduction Reps/Minutes X10 each LE Comments verbal, visual and tactile cues Sitting Exercises PD machine abduction Side bilateral Resistance 4 Reps/Minutes X10 each side seated hip abduction with band Side bilateral Resistance level 5 band Reps/Minutes X15 without hold Standing Exercises side stepping with band Standing Exercise Name in mini squat position, verbal and visual cues Side bilateral Resistance level 5 band Equipment Used HEP Reps/Minutes 10 feet left and right X 3 Glute med isometric Side bilateral Equipment Used HEP Reps/Minutes one minute Comments verbal and visual cues squat with band Standing Exercise Name squat with chair touch Side bilateral Resistance level 5 band/ holding 5 lb weights Equipment Used HEP Reps/Minutes X15 X 2 Comments verbal and visual cues bilateral heel raise Standing Exercise Name Single leg heel raise on and off step Side bilateral Equipment Used HEP Reps/Minutes X10 on floor X 10 on step each LE Comments Verbal cues to lower heels slowly Neuro Re-Education Treatment Balance Activities [place] Reps/Duration 10 feet X 4 hands above bars I SLS Details SLS with visual scanning and head turns Reps/Duration left and right LE X 1 PT-OP-T Assessment and Plan Start: 08/17/23 17:40 Freq: Status: Active Protocol: Document 11/15/23 08:03 AB (Rec: 11/15/23 11:46 AB [id number]) Physical Therapy Assessment Goals Three Impairment Pt ambulates within six inches of L wall in hallway due to R visual deficit Java Architect Goal (LTG) Pt to demonstrate appropriate visual scanning during gait 80 % of the time without verbal cues in order to increase visual field and improve comfort ambulating away from left-hand wall. LTG Duration Met Two Impairment Pt able to tolerate weeding garden for 20 minutes Snf Goal (LTG) Pt to report ability to weed garden for 45 minutes without rest break in order to demonstrate increased activity tolerance LTG Duration 11/15/23 One Impairment Pt does not have an appropriate home exercise program Short Term Goal (STG) Pt to be independent and compliant with an appropriate HEP STG Duration 09/17/23 Assessment Summary Assessment HEP progressed and condensed to every other day for maintanence program. Physical Therapy Plan Frequency and Duration Frequency of Treatment 2x/Week Plan of Care Start Date 08/17/23 Plan of Care End Date 11/15/23 Next Visit Focus/Plan Next Note Type Treatment Note Next Visit Plan Nick nur, oculomotor exercises, dynamic balance challenges
--- NOTE | 2023-11-16 15:36 | PT.OPDS ---
Current Diagnoses Unspecified mental disorder due to known physiological condition (11/15/23) Other subjective visual disturbances (11/15/23) Unsteadiness on feet (11/15/23) Other fatigue (11/15/23) Visit Care Team Role Provider Type Chidi Madera MD Attending Provider Non-Staff Family Provider Primary Care Provider Referring Provider Specialty: Medical Address: [address] [place] [address], [id number] Email: Visit Number Visit Number 17 Discharge Summary PT-OP-B Current Condition Start: 08/17/23 17:40 Freq: Status: Active Protocol: Document 08/17/23 16:45 DCW (Rec: 08/17/23 17:55 DCW [id number]) Current Condition History of Current Condition Onset Date March Current Complaints visual loss, weakness, fatigue , and cognitive decline s/p CVA History of Current Condition Pt presents to skilled therapy secondary to 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 Pt notes left- sided weakness, fatigue, gait deficits, decreased balance, falls, and right visual field defects. Pt has been working very hard since CVA, first a long stay at [facility] [place], and then spending eight weeks in inpatient rehab. Pt admits that despite the CVA in March, she doesn't remember anything between March and May, and and things are pretty fuzzy even for a few months prior to the CVA. Pt currently living with her brother, who attends her PT eval with her. Has made great strides already, feeling much better with her gait. Reports left side is still weaker, it lags behind her right, will often have to stop to reset. Worse when she begins to fatigue or with distraction. Has been practicing taking longer strides. Also has right -sided visual field loss, mainly her peripheral, however they have been working on visual scanning both on their boat and walking through the grocery store. Treatment Goals Patient/Caregiver Goals Improve activity tolerance to be able to do more gardening/ weeding, and return to driving . PT-OP-C Subjective Start: 08/17/23 17:40 Freq: Status: Active Protocol: Document 11/15/23 08:03 AB (Rec: 11/15/23 11:46 AB [id number]) OP-PT Subjective Patient Comments Patient Comments Patient reports she hasn't joined gym, is checking them out. PT-OP-D Balance Start: 08/17/23 17:40 Freq: Status: Active Protocol: Document 10/31/23 12:00 DCW (Rec: 10/31/23 12:25 DCW [id number]) Balance Tests Single Limb Standing Single Limb- Right 17 Single Limb- Left 19 PT-OP-E Functional Tests Start: 08/17/23 17:40 Freq: Status: Active Protocol: Document 10/31/23 12:00 DCW (Rec: 10/31/23 12:25 DCW [id number]) Functional Tests Functional Gait Assessment Score 29/30 PT-OP-M Strength Start: 08/17/23 17:40 Freq: Status: Active Protocol: Document 10/31/23 12:00 DCW (Rec: 10/31/23 12:25 DCW [id number]) Hip Strength Hip Manual Muscle Testing Right Flexion (L2) 5 Normal Abduction 5 Normal Adduction 5 Normal External Rotation 5 Normal Internal Rotation 5 Normal Left Flexion (L2) 4+ Good+ Abduction 5 Normal Adduction 5 Normal External Rotation 5 Normal Internal Rotation 5 Normal Knee Strength Knee Manual Muscle Testing Right Flexion (S2) 5 Normal Extension (L3) 5 Normal Left Flexion (S2) 5 Normal Extension (L3) 5 Normal PT-OP-T Assessment and Plan Start: 08/17/23 17:40 Freq: Status: Active Protocol: Document 11/16/23 15:35 DCW (Rec: 03/30/24 15:36 DCW [id number]) Physical Therapy Assessment Assessment Summary Assessment Pt discharging to [facility], per prior plan. Pt doing well, no longer experiencing visual deficits, returning to [facility] Physical Therapy Plan Discharge Physical Therapy Discharge Reasons Goals Met Next Visit Focus/Plan Next Note Type Discharge Summary
== END 2024-04-02 09:47 | disposition home or self-care (01) ==
LOC: PHYS 08:15
PROVIDERS: Family Provider Family Medicine; PCP Family Medicine; Referring Provider Family Medicine; Visit Provider Family Medicine
DX: F09 Unspecified mental disorder due to known physiological condition (principal); R53.83 Other fatigue; H53.19 Other subjective visual disturbances; R26.81 Unsteadiness on feet
CPT/HCPCS: 97110; 97112; 97163; 97530